=== PATIENT | female | born 1990 | race Caucasian/White ===

== ENCOUNTER 2017-07-02 13:01 | Outpatient (CLI) | payer BC, SELFPAY ==
[2017-07-02 15:39] VITALS: BMI 33.5
== END 2017-07-02 13:45 | disposition home or self-care (01) ==
LOC: OBOUT 13:04 → OB 13:09
PROVIDERS: PCP Family Medicine; Visit Provider Nurse Practitioner Obstetrics & Gynecology
DX: O26.91 Pregnancy related conditions, unspecified, first trimester (principal); Z3A.01 Less than 8 weeks gestation of pregnancy; N93.0 Postcoital and contact bleeding

== ENCOUNTER → 2017-07-04 12:48 | Outpatient (CLI) | payer BC, SELFPAY ==
--- NOTE | 2017-07-04 12:55 | US_ITS ---
US OB transvaginal HISTORY: Evaluate gestational age and due date ITS.REASON: DATES ORDERING PHYSICIAN: Ponce Pearson MD PATIENT AGE: 27 years COMPARISON: None FINDINGS: An intrauterine gestational sac is present with a pole with a crown-rump length of 1.11cm correlating to gestational age of 7 weeks 2 days. heart tones are present with an FHR of 164 bpm's. Yolk sac is noted. The estimated due date ultrasound is 02/18/2018. Adnexa: 15 mm right corpus luteum cyst noted.. IMPRESSION: Live intrauterine gestation at 7 weeks 2 days as described above with an estimated date of 02/18/2018.
== END ==
PROVIDERS: Family Provider Family Medicine; PCP Family Medicine; Visit Provider Nurse Practitioner Obstetrics & Gynecology
DX: O26.841 Uterine size-date discrepancy, first trimester (principal)
CPT/HCPCS: 76830

== ENCOUNTER → 2017-10-01 12:54 | Outpatient (CLI) | payer BC, SELFPAY ==
--- NOTE | 2017-10-01 13:00 | US_ITS ---
US OB /maternal detail INDICATION: ITS.REASON: US OB- Complete. TECHNIQUE: ultrasound transabdominal scanning/ MW COMPARISON: Ultrasound early 07/04/2017 FINDINGS Single viable intrauterine gestation. Cephalic position. The cervix appears satisfactory. Long, closed and measuring 3.0 cm centimeter in length. Complete survey performed and was unremarkable on the submitted images as in PACS.No discrete anomalies identified on survey imaging by technologist Active fetus. Three-vessel cord with satisfactory umbilical cord insertion. . Survey of brain & ventricles. Face and neck survey unremarkable. Diaphragm & views chest unremarkable. abdomen: Both kidneys noted & unremarkable. Stomach noted & satisfactory. spine: Survey of the spine satisfactory with no anomalies identified nor imaged Both arms and legs noted. Amniotic fluid.-Adequate. Maternal adnexa -no significant findings. measurements:. Average ultrasound age 20 weeks 3 days. Gestational age 20 weeks 3 days. BPD = 4.64 cm equaling 20 weeks 1 day OFD = 6.02 cm equaling 20 weeks 4 days HC = 16.88 cm equaling 19 weeks 4 days AC = 15.79 cm equaling 21 weeks 0 days FL = 3.38 cm equaling 20 weeks 5 days Heart rate = 153 BPM. Cerebellum = 1.91 cm equaling 19 weeks 5 days humerus = 3.137 m likely 20 weeks 3 days IMPRESSION: Single viable intrauterine gestation in breech position currently. 20 weeks 3 daysaverage ultrasound age with today's measurements Anterior placenta. Active fetus. No discrete abnormalities on the ultrasound survey.
== END ==
PROVIDERS: Family Provider Family Medicine; PCP Family Medicine; Visit Provider Nurse Practitioner Obstetrics & Gynecology
DX: Z36.0 Encounter for antenatal screening for chromosomal anomalies (principal)
CPT/HCPCS: 76811

== ENCOUNTER → 2018-01-24 10:45 | Outpatient (CLI) | payer BC, SELFPAY ==
[2018-01-24 11:17] LABS: Basophils % 0.3 % (0.1-2.0); Eosinophils # 0.1 K/mm3 (0.0-0.4); Eosinophils % 0.7 % (0.1-12.0); Hematocrit 37.1 % (37.0-47.0); Hemoglobin 12.5 g/dL (12.2-16.2); Lymphocytes # 2.2 K/mm3 (0.7-4.5); Lymphocytes % 17.4 K/mm3 (10-50); Mean Corpuscular HGB Conc 33.7 g/dL (31.8-35.4); Mean Platelet Volume 9.5 fl (7.4-10.4); Monocytes # 0.7 K/mm3 (0.1-1.0); Monocytes % 5.3 % (1.7-9.3); Neutrophils # 9.6 K/mm3 (1.8-7.8); Neutrophils % 76.3 % (37.0-80.0); Platelet Count 253 K/mm3 (142-424); Red Blood Count 4.47 M/mm3 (4.20-5.40); Red Cell Distribution Width 14.2 % (11.5-17.5); White Blood Count 12.6 K/mm3 (4.8-10.8)
[2018-01-24 12:04] LABS: Alanine Aminotransferase 24 U/L (12-78); Albumin Level 2.8 gm/dL (3.4-5.0); Albumin/Globulin Ratio 0.7 (1.1-1.8); Alkaline Phosphatase 177 U/L (46-116); Anion Gap 13.3 mEq/L (5-15); Aspartate Amino Transferase 18 U/L (15-37); Bilirubin,Total 0.3 mg/dL (0.2-1.0); Blood Urea Nitrogen 7 mg/dL (7-18); Calcium 9.2 mg/dL (8.5-10.1); Carbon Dioxide 22 mmol/L (21.0-32.0); Chloride 105 mmol/L (98-107); Creatinine,Serum 0.37 mg/dL (0.55-1.02); Estimated Glomerular Filt Rate 206 ml/min (>60); GFR (African American) 250 ML/MIN (>60); Globulin 3.8 gm/dl (1.3-3.2); Glucose 72 mg/dL (74-106); Potassium 4.3 mmoL/L (3.5-5.1); Sodium 136 mmol/L (136-145); Total Protein,Serum 6.6 gm/dL (6.4-8.2); Uric Acid 3.4 mg/dL (2.6-7.2)
== END ==
PROVIDERS: Family Provider Family Medicine; PCP Family Medicine; Visit Provider Nurse Practitioner Obstetrics & Gynecology
DX: Z34.90 Encounter for supervision of normal pregnancy, unspecified, unspecified trimester (principal)
CPT/HCPCS: 36415; 80053; 84550; 85025; 86403

== ENCOUNTER → 2018-01-26 09:53 | Outpatient (CLI) | payer BC, SELFPAY ==
[2018-01-26 12:46] LABS: Creatinine,Urine Random 112 mg/dL (20-320); Total Protein,Urine Random 19.1 mg/dL (0.0-11.9)
[2018-01-26 13:24] LABS: Collection Time,Urine 26 hours; Creatinine 24 Hour,Urine 1736 mg/24hr (630-2500); Total Protein 24 Hour,Urine 296 mg/24 hr (40-90); Total Volume,Urine 1550 mL (600-1600)
== END ==
PROVIDERS: Family Provider Family Medicine; PCP Family Medicine; Visit Provider Nurse Practitioner Obstetrics & Gynecology
DX: Z34.90 Encounter for supervision of normal pregnancy, unspecified, unspecified trimester (principal)
CPT/HCPCS: 82570; 84155

== ENCOUNTER 2018-01-30 04:56 | Inpatient (IN) ==
[2018-01-30 06:45] LABS: Anion Gap 13.5 mEq/L (5-15); Calcium 9.1 mg/dL (8.5-10.1); Potassium 3.5 mmoL/L (3.5-5.1); Uric Acid 4.1 mg/dL (2.6-7.2)
[2018-01-30 07:00] LABS: Activated Partial Thrombo Time 26.9 seconds (23.6-34.0); INR 0.92 (0.9-1.1); Prothrombin Time 9.5 seconds (9.4-11.8)
[2018-01-30 07:29] LABS: Fibrinogen > 500 mg/dL (204-500)
[2018-01-30 07:37] LABS: D-Dimer 760 ng/mL (0-400)
[2018-01-30 07:51] LABS: Basophils # 0.1 K/mm3 (0-0.2); Basophils % 0.5 % (0.1-2.0); Eosinophils # 0.1 K/mm3 (0.0-0.4); Hemoglobin 12.2 g/dL (12.2-16.2); Lymphocytes # 2.2 K/mm3 (0.7-4.5); Lymphocytes % 15.8 K/mm3 (10-50); Mean Corpuscular HGB Conc 32.9 g/dL (31.8-35.4); Mean Corpuscular Volume 82.1 fl (81-99); Mean Platelet Volume 10.2 fl (7.4-10.4); Monocytes # 0.8 K/mm3 (0.1-1.0); Monocytes % 5.7 % (1.7-9.3); Neutrophils # 10.6 K/mm3 (1.8-7.8); Platelet Count 258 K/mm3 (142-424); Red Blood Count 4.51 M/mm3 (4.20-5.40); Red Cell Distribution Width 14.7 % (11.5-17.5); White Blood Count 13.7 K/mm3 (4.8-10.8)
--- NOTE | 2018-01-30 10:36 | Progress Note ---
[facility] Anesthesia Checklist - Patient Identification Patient Identification: Arm Band - Structural Data Admitted From: Inpatient Planned Operative Procedure/s: labor epidural Consent for Planned Operative Procedure(s) Verified: Yes Verified Documents: Surgical Consent, History and Physical - NPO Status Verified Time NPO: 00:00 - Additional verifications Anesthesia Reactions: No - Airway Assessment C-Spine Mobility Assessed: Yes TMJ Mobility Assessed: Yes Dentition: Good Dentition - Neurological Assessment Level of Consciousness: Awake, Alert - Anesthesia Plan Anesthesia Risk discussed: Yes Anesthesia Plan: Verified ASA Class: II Anesthesia Type: Epidural [facility] Anesthesia HX I have reviewed the patient's past medical history: Yes Medical History: Denies:: Anxiety, Asthma, Diabetes Mellitus Type 2 Other Surgeries: No: Amputation: No Fractures: No *Family Hx:: Cancer, Diabetes, Hypertension, Thyroid Disorder
--- NOTE | 2018-01-30 14:24 | History & Physical Report ---
OB - H&P: HPI Antepartum - History of Present Illness Chief complaint: IOL History of present illness: 27yo 38 wks IOL for PIH Proteinuria 296mg; denies RAMOS, visual changes or epigastric pain testing reassuring No new complaints [facility] History I have reviewed the patient's past medical history: Yes Medical History: Denies:: Anxiety, Asthma, Diabetes Mellitus Type 2 Other Surgeries: No: Amputation: No Fractures: No - *Social History Smoking Status: Never smoker Alcohol Intake: never Substance Use Type: denies use Occupational Status: employed - Psychiatric History Pschychiatric History:: Denies:: Anxiety *Family Hx:: Cancer, Diabetes, Hypertension, Thyroid Disorder Para: 2 Review of Systems - Review of Systems Review of systems:: pertinent systems reviewed and negative unless documented below - Constitutional Denies chills, Denies fever(s) - Eyes Denies blurry vision, Denies double vision, Denies floaters - ENT Denies bleeding gums - *Cardiovascular Denies chest pain, Denies shortness of breath - *Respiratory Denies cough, Denies shortness of breath - *Gastrointestinal Denies abdominal pain, Denies change in bowel habits, Denies change in stools, Denies nausea, Denies vomiting - *Genitourinary Denies abnormal vaginal bleeding - *Musculoskeletal Reports back pain - Integumentary/Breasts Denies nipple discharge - *Neurologic Denies loss of vision, Denies other visual disturbances, Denies tingling/ numbness/burning sensations - Psychiatric Denies anxiety, Denies depression - Hematologic/Lymphatic Denies easy bleeding, Denies easy bruising Meds Home Medications Medication Instructions Recorded Confirmed Type [id number] 1 mg 1 tab PO DAILY 08/23/17 01/30/18 History tablet Ferrous Sulfate 325 mg PO DAILY 01/30/18 01/30/18 History Labetalol HCl 200 mg PO BID 01/30/18 01/30/18 History Allergies Allergy/AdvReac Type Severity Reaction Status Date / Time Penicillins Allergy Hives Verified 01/30/18 05:18 OB - H&P: Exam - Physical Exam Vital signs: Temp Pulse Resp BP Pulse Ox 97.9 F 81 18 140/77 100 01/30/18 05:06 01/30/18 05:06 01/30/18 05:06 01/30/18 05:06 01/30/18 05:06 - Constitutional no acute distress - Routine HEENT Exam ENT: Present: mucous membranes moist - Routine Respiratory Exam Present: CTA bilaterally. Absent: respiratory distress - Routine Cardiovascular Exam Present: RRR. Absent: tachycardia - Routine Abdominal Exam Present: soft. Absent: tenderness, distended - Routine Exam Perineal: Absent: erythema, induration, tenderness - Routine Extremities Exam Present: edema (1+) - Routine Skin Exam Present: intact, dry, warm. Absent: rash - Routine Neurological Exam Present: alert, oriented X3, normal reflexes - Routine Psychiatric Exam Present: normal affect. Absent: depressed, anxious - Detailed Labor and Delivery Exam Dilation (cm): 4 Effacement (%): 50 Cervix position: mid station: -1 Consistency: soft Membranes: intact monitor accelerations: Present monitor decelerations: None FCI variability: Moderate (11-25) Contraction frequency (min): 7 Tachysystole: No Contraction intensity: Mild OB - Results - Labs Labs: Short CBC 01/30/18 01/30/18 Range/Units 05:25 05:25 WBC Cancelled 13.7 H Hgb Cancelled 12.2 Hct Cancelled 37.0 Plt Count Cancelled 258 BMP 01/30/18 05:25 Sodium 138 Potassium 3.5 Chloride 106 Carbon Dioxide 22 BUN 6 L Creatinine 0.51 L Glucose 93 Calcium 9.1 Liver Function 01/30/18 Range/Units 05:25 AST 20 (15-37) U/L ALT 32 (12-78) U/L OB - A/P Antepartum (1) with 38 completed weeks gestation Current visit: Yes Status: Acute (2) PIH ( induced hypertension) Current visit: No Status: Acute - Additional Plan Additional Information:: 1. 38+ weeks IOL Pitocin augmentation Epidural at request 2. PIH PIH precautions and close monitoring of BP in labor; no indication for magnesium prophylaxis at this point 3. Reassuring status Continuous monitoring Anticipate
--- NOTE | 2018-01-30 14:39 | Progress Note ---
Delivery date: 01/30/18 Procedure: Spontaneous vaginal delivery of liveborn female infant over intact perineum. Nuchal cord x1 reduced on perineum; infant to nursing staff immediately after delivery for suction & assessment. Delivery uncomplicated & controlled; no shoulder dystocia occurred. Placenta spontaneously delivered and intact. No perineal/labial/vaginal/cervical lacerations. Apgars 7 (1 min) & 9 (5 min); infant transitioned to maternal [id number] after brief assessment and bulb suctioning. Mom/baby stable to recovery. EBL: 300cc All counts correct at conclusion of procedure. Events: Pre-Eclampsia Induction method: per pitocin protocol Delivery augmentation: pitocin Delivery monitor: external FHT, internal uterine Route of delivery: Episiotomy description: None Laceration description: None Estimated blood loss (mL): 300 Anesthesia type: Epidural Disposition: floor
[2018-01-31 07:47] LABS: Hematocrit 32.8 % (37.0-47.0); Hemoglobin 10.7 g/dL (12.2-16.2)
--- NOTE | 2018-01-31 23:37 | Progress Note ---
Internal Medicine - PN: Subj *Date: 01/31/18 *Time: 11:33 Interval history: PPD #1 No complaints Tolerating po, ambulating and voiding without difficulty Lochia less than menses Exam Vital signs and Labs for Last 24 Hours: Temp Pulse Resp BP Pulse Ox 97.9 F 81 18 140/77 100 01/30/18 05:06 01/30/18 05:06 01/30/18 05:06 01/30/18 05:06 01/30/18 05:06 Laboratory Results - last 24 hr 01/31/18 07:35: Hgb 10.7 L, Hct 32.8 L I & O for Last 24 hours: Intake & Output 01/29/18 01/30/18 01/31/18 02/01/18 11:59 11:59 11:59 11:59 Weight 182 lb - Constitutional no acute distress - *Routine Respiratory Exam Absent: respiratory distress - *Routine Cardiovascular Exam Absent: tachycardia - *Routine Abdominal Exam Present: soft. Absent: tenderness, distended - *Routine Extremities Exam Absent: edema - *Routine Skin Exam Present: intact, dry, warm - *Routine Neurological Exam Present: alert, oriented X3 - Routine Psychiatric Exam Present: normal affect Assessment and Plan (1) with 38 completed weeks gestation Current visit: Yes Status: Acute Category: Medical Code(s): Z3A.38 - 38 weeks gestation of (2) PIH ( induced hypertension) Current visit: No Status: Acute Category: Medical Code(s): O13.9 - Gestational [-induced] hypertension without significant proteinuria, unspecified trimester (3) Normal vaginal delivery Current visit: Yes Status: Acute Category: Medical Code(s): O80 - Encounter for full-term uncomplicated delivery - Assessment and plan all Dx Assessment and Plan for all problems:: Routine care Anticipate discharge in am
--- NOTE | 2018-02-01 09:33 | Discharge Summary ---
DS: Providers Date of admission: 01/30/18 04:56 Primary care physician: Jorge L Lee MD Attending physician on admission: Myla Manley Attending physician on discharge: Myla Manley Anticipated date of discharge: 02/01/18 DS: Diagnosis - Discharge Diagnosis (1) with 38 completed weeks gestation Status: Acute (2) PIH ( induced hypertension) Status: Acute (3) Normal vaginal delivery Status: Acute DS: Medications - Discharge Medications Prescriptions: New Ibuprofen [Motrin 400mg tablet] 800 mg PO Q6HP PRN tablet PRN Reason: Mild To Moderate Pain Continue Ferrous Sulfate 325 mg PO DAILY Labetalol HCl 200 mg PO BID No Action [id number] 1 mg tablet 1 tab PO DAILY OB - DS: Summary Hospital course: Ms. Bell is a 27 year old female s/p IOL for PIH uncomplicated and course uneventful ambulating, tolerating regular diet and voiding without difficulty BP somewhat labile but stable in normal-mild elevation range Discharged home on PPD #2 F/u office 1 wk for BP check - Peripartum Data Delivery method: spontaneous vaginal delivery - Status at Discharge Functional status at discharge: independent ambulation Overall status at discharge: patient is progressing back to baseline - Time Spent with Patient Total time spent providing and/or coordinating discharge services: Less than 30 minutes Exam Vital signs and Labs for Last 24 Hours: Temp Pulse Resp BP Pulse Ox 97.9 F 81 18 140/77 100 01/30/18 05:06 01/30/18 05:06 01/30/18 05:06 01/30/18 05:06 01/30/18 05:06 I & O for Last 24 hours: Intake & Output 01/29/18 01/30/18 01/31/18 02/01/18 11:59 11:59 11:59 11:59 Weight 182 lb - Constitutional no acute distress - *Routine Respiratory Exam Absent: respiratory distress - *Routine Cardiovascular Exam Absent: tachycardia - *Routine Abdominal Exam Present: soft. Absent: tenderness, distended - *Routine Extremities Exam Absent: edema - *Routine Skin Exam Absent: rash - *Routine Neurological Exam Present: alert, oriented X3, normal reflexes - Routine Psychiatric Exam Present: normal affect. Absent: depressed, anxious Discharge Plan - Patient Discharge Instructions ACTIVITY: Continue current activity DIET: regular diet - Follow up Plan Disposition: Home, Self-Detention Medications: Home Medications Medication Instructions Recorded Confirmed Type [id number]-[id number]-FA 1 mg 1 tab PO DAILY 08/23/17 01/30/18 History tablet Ferrous Sulfate 325 mg PO DAILY 01/30/18 01/30/18 History Labetalol HCl 200 mg PO BID 01/30/18 01/30/18 History Prescriptions/Medication Reconciliation: No Action shvxjuuw-axu-Xj-FA 1 mg tablet 1 tab PO DAILY Ferrous Sulfate 325 mg PO DAILY Labetalol HCl 200 mg PO BID
== END 2018-02-01 12:35 | disposition home or self-care (01) ==
LOC: OB 04:56
PROVIDERS: ADMIT Obstetrics & Gynecology; ATTEND Obstetrics & Gynecology

== ENCOUNTER → 2018-09-09 08:29 | Outpatient (CLI) | payer BC, SELFPAY ==
[2018-09-09 09:10] LABS: Microscopic, Urine URINE MICROSCOPIC (MICROSCOPIC)
[2018-09-09 09:39] LABS: Appearance,Urine CLEAR (Clear); Bilirubin,Urine Negative (Negative); Blood, Urine TRACE-I (Negative); Color,Urine YELLOW (Yellow); Glucose,Urine (UA) Negative (Negative); Ketones,Urine Negative (Negative); Leukocyte Esterase,Urine 1+ (Negative); Nitrate,Urine Negative (Negative); Protein,Urine Negative (Negative); Urobilinogen,Urine 0.2 EU/dl (0.2)
[2018-09-09 09:41] LABS: Creatinine,Urine Random 167 mg/dL (20-320); Total Protein,Urine Random 17.9 mg/dL (0.0-11.9)
[2018-09-09 09:46] LABS: Bacteria,Urine 4+ /lpf; Mucus,Urine 2+ /lpf
[2018-09-09 09:51] LABS: Lactic Acid 1.9 mmol/L (0.4-2.0)
[2018-09-09 10:26] LABS: Creatinine,Urine Random 91 mg/dL (20-320); Total Protein,Urine Random 10.9 mg/dL (0.0-11.9)
[2018-09-09 10:29] LABS: Basophils % 0.4 % (0.1-2.0); Eosinophils # 0.1 K/mm3 (0.0-0.4); Eosinophils % 1.1 % (0.1-12.0); Hematocrit 39.7 % (37.0-47.0); Hemoglobin 13.1 g/dL (12.2-16.2); Lymphocytes # 2.2 K/mm3 (0.7-4.5); Lymphocytes % 21.4 % (10-50); Mean Corpuscular HGB Conc 32.9 g/dL (31.8-35.4); Mean Corpuscular Hemoglobin 28.2 pg (27.0-31.2); Mean Corpuscular Volume 85.6 fl (81-99); Monocytes # 0.5 K/mm3 (0.1-1.0); Monocytes % 4.8 % (1.7-9.3); Neutrophils # 7.3 K/mm3 (1.8-7.8); Neutrophils % 72.3 % (37.0-80.0); Platelet Count 256 K/mm3 (142-424); Red Blood Count 4.64 M/mm3 (4.20-5.40); Red Cell Distribution Width 13.5 % (11.5-17.5); White Blood Count 10.1 K/mm3 (4.8-10.8)
[2018-09-09 11:16] LABS: Collection Time,Urine 24 hours
[2018-09-09 11:16] LABS: Alanine Aminotransferase 42 U/L (12-78); Albumin Level 4.1 gm/dL (3.4-5.0); Albumin/Globulin Ratio 1.1 (1.1-1.8); Alkaline Phosphatase 151 U/L (46-116); Anion Gap 15.9 mEq/L (5-15); Aspartate Amino Transferase 19 U/L (15-37); Bilirubin,Total 0.4 mg/dL (0.2-1.0); Blood Urea Nitrogen 11 mg/dL (7-18); Carbon Dioxide 26 mmol/L (21.0-32.0); Chloride 103 mmol/L (98-107); Creatine Kinase 60 U/L (26-192); Creatinine,Serum 0.82 mg/dL (0.55-1.02); Estimated Glomerular Filt Rate 82 ml/min (>60); GFR (African American) 99 ML/MIN (>60); Gamma Glutamyl Transpeptidase 95 U/L (5-55); Globulin 3.6 gm/dl (1.3-3.2); Glucose 85 mg/dL (74-106); Phosphorous 4.1 mg/dL (2.4-4.9); Potassium 3.9 mmoL/L (3.5-5.1); Sodium 141 mmol/L (136-145); Total Protein,Serum 7.7 gm/dL (6.4-8.2)
[2018-09-09 11:17] LABS: Hemoglobin A1C 5.7 % (0.0-7.0)
[2018-09-09 11:20] LABS: Creatinine 24 Hour,Urine 1138 mg/24hr (630-2500); Total Protein 24 Hour,Urine 136 mg/24 hr (40-90); Total Volume,Urine 1250 mL (600-1600)
[2018-09-10 16:11] LABS: Microalbumin, Urine 6.7 ug/mL (Not Estab.)
== END ==
PROVIDERS: Visit Provider Transplant Surgery
DX: Z00.5 Encounter for examination of potential donor of organ and tissue (principal)
CPT/HCPCS: 36415; 80053; 81001; 82043; 82550; 82570; 82977; 83036; 83605; 84100; 84155; 84550; 85025; 86900; 86901; 87086

== ENCOUNTER → 2018-10-17 07:55 | Outpatient (CLI) | payer BC, SELFPAY ==
[2018-10-17 10:10] LABS: Erythrocyte Sedimentation Rate 36 mm/hr (0-20)
[2018-10-17 13:45] LABS: C-Reactive Protein 0.2 mg/L (0.0-0.9)
== END ==
PROVIDERS: Visit Provider Transplant Surgery
DX: Z00.5 Encounter for examination of potential donor of organ and tissue (principal)
CPT/HCPCS: 36415; 85651; 86140

== ENCOUNTER 2021-09-03 09:15 | Emergency (ER) | payer BC, SELFPAY ==
[2021-09-03 09:15] VITALS: BP 134/88; PULSE 102; RESP 18; TEMP 36.6; O2SAT 97; BMI 27.6
[2021-09-03 09:35] VITALS: BP 134/88; PULSE 102; RESP 18; TEMP 36.6; O2SAT 97
--- NOTE | 2021-09-03 09:38 | HMH.EDUTC ---
[facility] Disposition Clinical Impression: Upper respiratory infection, viral, Exposure to COVID-19 virus Disposition: Home, Self-Care Condition on Discharge: Good Instructions: DI for Viral Upper Respiratory Infection -- Adult Additional Instructions: covid swab was sent to lab, call tomorrow for results. self isolate until test results are known to be negative No sign of a bacterial infection. Likely viral. Viruses can take 7-14 days to run their course. Nasal saline and bulb syringe or nose Faye to remove nasal drainage to help with nasal congestion. Hard to eat, drink, sleep with nasal congestion so important to keep this cleaned out. Monitor temp. Tylenol or Motrin as needed for pain or fever Encourage fluids, water, Gatorade, Powerade, Pedialyte if /toddler/child Warm salt water gargles Warm fluids Sore throat lozenges Sleep elevated Humidifier/vaporizer Follow-up immediately for new or worsening symptoms or no noticeable improvement over the next 48-72 hours. Referrals: Tiffanie Campos PA [Primary Care Provider] - Time of Disposition: 09:40 Medical Decision Making - Subahsh Inquiry Pt receiving controlled substance: No Orders (Tests/Meds): ORDERS Category Date Time Status Covid-19 Nasal PCR ([facility]) Routine Lab 09/03/21 09:20 Received [facility] HPI - General Chief complaint: Urgent Treatment [facility] Stated complaint: covid exposure, fever Time Seen by Provider: 09/03/21 09:38 Mode of Arrival: Ambulatory Source of Information: Patient Limitations: No Limitations - History of Present Illness Provider Complaint: 31 yr old female presents for nasal congestion,cough and rt ear pressure, son positive for covid - Related Data Home Medications Medication Instructions Recorded Confirmed No Known Home Medications 01/13/20 03/18/21 Allergies Allergy/AdvReac Type Severity Reaction Status Date / Time Penicillins Allergy Hives Verified 03/18/21 10:49 [facility] History - Hepatitis A Screen Attestation statement:: This patient has been screened for Hepatitis A risk factors. I have reviewed the patient's past medical history: Yes Medical History: Reports:: Aneurysm Denies:: Anxiety, Asthma, Diabetes Mellitus Type 2 Other Surgeries: Yes: Cholecystectomy. No: Amputation: No Fractures: No Comment: gallbladder 2009 - Social History Smoking Status: Never smoker Alcohol Intake: never Alcohol Intake Frequency:: other Substance Use Type: denies use Occupational Status: other - Psychiatric History Pschychiatric History:: Denies:: Anxiety Family Hx:: Cancer, Diabetes, Hypertension, Thyroid Disorder Comment: family hx of kidney disease, colon cancer, liver and lungs, hypertension, thyroid, diabetes ROS Obtained: Yes Systems reviewed as appropriate & no additional complaints - Constitutional Constitutional: Reports system reviewed and no additional complaints, except as docu, Denies fever(s) - Eyes Eyes: Reports system reviewed and no additional complaints, except as darrellu, Denies blurry vision - ENT Ears, Nose, Mouth, and Throat: Reports system reviewed and no additional complaints, except as docu, Reports otalgia, Reports nasal congestion, Reports nasal discharge, Denies sore throat - Cardiovascular Cardiovascular: Reports system reviewed and no additional complaints, except as darrellu, Denies chest pain - Respiratory Respiratory: Reports system reviewed and no additional complaints, except as docu, Reports cough - Gastrointestinal Gastrointestingal: Reports: system reviewed and no additional complaints, except as darrellu. Denies: belching - Musculoskeletal Musculoskeletal: Reports system reviewed and no additional complaints, except as darrellu, Denies joint pain - Integumentary/Breasts Skin/Breast: Reports system reviewed and no additional complaints, except as docu, Denies rash - Neurologic Neurologic: Reports system reviewed and no additional complaints, except as barbie Denie
== END 2021-09-03 09:40 | disposition home or self-care (01) ==
PROVIDERS: Emergency Provider Nurse Practitioner Family; PCP Physician Assistant
DX: U07.1 COVID-19 (principal); J06.9 Acute upper respiratory infection, unspecified; I72.9 Aneurysm of unspecified site; Z88.0 Allergy status to penicillin; Z82.49 Family history of ischemic heart disease and other diseases of the circulatory system; Z83.3 Family history of diabetes mellitus; Z80.1 Family history of malignant neoplasm of trachea, bronchus and lung; Z80.0 Family history of malignant neoplasm of digestive organs; Z84.1 Family history of disorders of kidney and ureter; Z83.49 Family history of other endocrine, nutritional and metabolic diseases
CPT/HCPCS: 99212; C9803; G0463; U0003; U0005

== ENCOUNTER → 2021-11-21 10:48 | Outpatient (CLI) | payer BC, SELFPAY | PROVIDERS: Visit Provider Surgery | DX: Z01.818 Encounter for other preprocedural examination (principal); Z20.822 Contact with and (suspected) exposure to COVID-19 | CPT/HCPCS: C9803; U0003; U0005 ==

== ENCOUNTER 2023-07-10 13:49 | Outpatient (CLI) | payer BC, SELFPAY ==
--- NOTE | 2023-07-10 13:56 | XR_ITS ---
FINAL REPORT TECHNIQUE: Chest PA & Lateral CLINICAL HISTORY: BRONCHITIS FINDINGS: 2 views of the chest were performed. The heart size is normal. The mediastinum is within normal limits. There is no acute cardiopulmonary process. There are no pleural effusions. There is no pneumothorax. The bony thorax appears intact. IMPRESSION: No acute cardiopulmonary process. Reviewed, Interpreted and Dictated by Sukhdev Gaston III, MD Transcribed by Boom Melgoza Authenticated and [facility]
== END 2023-07-10 23:59 ==
LOC: RAD 13:50
PROVIDERS: PCP Physician Assistant; Visit Provider Physician Assistant
DX: J40 Bronchitis, not specified as acute or chronic (principal)
CPT/HCPCS: 71046

== ENCOUNTER 2024-06-23 11:19 | Outpatient (CLI) | payer BC, SELFPAY ==
[2024-06-23 12:44] LABS: Alanine Aminotransferase 38 U/L (12-78); Albumin Level 4.3 g/dl (3.5-5.0); Albumin/Globulin Ratio 1.6 (1.1-1.8); Alkaline Phosphatase 86 U/L (38-126); Anion Gap 11.4 mEq/L (5-15); Aspartate Amino Transferase 34 U/L (14-36); Bilirubin,Total 0.6 mg/dl (0.2-1.3); Blood Urea Nitrogen 9 mg/dl (7-17); Calcium 9.9 mg/dl (8.4-10.2); Carbon Dioxide 27 mmol/L (22.0-30.0); Chloride 104 mmol/L (98-107); Estimated Glomerular Filt Rate 113 ml/min (>60); GFR (African American) 137 ML/MIN (>60); Globulin 2.7 g/dL (1.3-3.2); Glucose 204 mg/dl (74-100); Potassium 4.4 mmoL/L (3.5-5.1); Sodium 138 mmol/L (136-145)
== END 2024-06-23 23:59 | disposition home or self-care (01) ==
PROVIDERS: PCP Physician Assistant; Visit Provider Nurse Practitioner Obstetrics & Gynecology
DX: Z01.419 Encounter for gynecological examination (general) (routine) without abnormal findings (principal)
CPT/HCPCS: 36415; 80053

== ENCOUNTER 2024-06-28 08:49 | Outpatient (CLI) | payer BC, SELFPAY ==
[2024-06-28 09:19] LABS: Albumin Level 4.5 g/dl (3.5-5.0); Chloride 104 mmol/L (98-107); Potassium 4.3 mmoL/L (3.5-5.1); Sodium 137 mmol/L (136-145)
[2024-06-28 09:22] LABS: Alanine Aminotransferase 42 U/L (12-78); Albumin/Globulin Ratio 1.7 (1.1-1.8); Alkaline Phosphatase 98 U/L (38-126); Anion Gap 11.3 mEq/L (5-15); Aspartate Amino Transferase 34 U/L (14-36); Bilirubin,Total 0.4 mg/dl (0.2-1.3); Blood Urea Nitrogen 10 mg/dl (7-17); Carbon Dioxide 26 mmol/L (22.0-30.0); Estimated Glomerular Filt Rate 95 ml/min (>60); GFR (African American) 115 ML/MIN (>60); Globulin 2.7 g/dL (1.3-3.2); Total Protein,Serum 7.2 g/dl (6.3-8.2)
[2024-06-28 09:23] LABS: Calcium 9.6 mg/dl (8.4-10.2); Glucose 142 mg/dl (74-100)
[2024-06-28 10:32] LABS: Hemoglobin A1C 6.9 % (4.0-6.0)
== END 2024-06-28 23:59 | disposition home or self-care (01) ==
LOC: LAB 08:50
PROVIDERS: PCP Physician Assistant; Visit Provider Nurse Practitioner Obstetrics & Gynecology
DX: R53.83 Other fatigue (principal); R73.09 Other abnormal glucose
CPT/HCPCS: 36415; 80053; 83036

== ENCOUNTER 2025-02-12 14:08 | Outpatient (CLI) | payer BC, SELFPAY ==
--- OUTSIDE RECORDS SUMMARY | 2024-10-03 05:00 | XMS_ITS ---
Author Organization [facility] [place] Address [address] [facility] [address] [facility] [address] [place] [id number] Care Team Providers Care Control Officer Manager Name Role Phone Lance Garcia Primary Care Provider Tiffanie Campos Unavailable [phone] Allergies Allergen (clinical drug ingredient) Drug/Non Drug Allergy documented on EMR Reaction Allergy Type Onset Date Status Substance with penicillin structure and antibacterial mechanism of action (substance) Penicillins Unknown Drug Allergy Active Results Component Value Reference Range Notes P-Comprehensive Metabolic Pa silvino (CMP) Reviewed date:10/09/2024 02:08:32 PM Interpretation: Normal Performing Lab: Notes/Report: Test performed by [facility] [address] [place] [address] , [address], [place] [address] Mitchel Jauregui MD, Chemical Process Analyst CLIA: [id number] Sodium 139 135-145 mmol/L Potassium 4.8 3.5-5.3 mmol/L Chloride 102 97-108 mmol/L CO2 23 22-32 mmol/L Glucose 80 65-99 mg/dL BUN 9 6-20 mg/dL Creatinine 0.61 0.50-1.00 mg/dL Calcium 10.0 8.6-10.4 mg/dL eGFR by Creatinine 118 >59 mL/min/1.73m2 Protein 7.6 6.0-8.3 g/dL Albumin 4.7 3.5-5.3 g/dL Alkaline Phosphatase 109 35-121 IU/L ALT (SGPT) 37 <5-47 IU/L AST (SGOT) 25 <5-40 IU/L Bilirubin, Total 0.4 <0.2-1.2 mg/dL A/G Ratio 1.6 1.1-2.5 P-T4 Free (thyroxine) Reviewed date:10/09/2024 02:08:32 PM Interpretation: Normal Performing Lab: Notes/Report: Test performed by [facility] , [facility] [address], [place] [address] Mitchel Jauregui MD, Chemical Process Analyst CLIA: [id number] Thyroxine Free (free T4) 1.24 0.86-1.76 ng/dL P-Hemoglobin A1C Reviewed date:10/09/2024 02:08:32 PM Interpretation:5.3% Performing Lab: Notes/Report: Test performed by [facility] [address], [place] [address] Mitchel Jauregui MD, Chemical Process Analyst CLIA: [id number] Hemoglobin A1C 5.3 <5.7 % The following HbA1c ranges recommended by the [place] [employer] (ADA) may be used as an aid in the diagnosis of diabetes mellitus. HbA1c Suggested Diagnosis >=6.5% Diabetic 5.7% - 6.4% Pre-Diabetic <5.7% Non-Diabetic P-TSH Reviewed date:10/09/2024 02:08:32 PM Interpretation: Normal Performing Lab: Notes/Report: Test performed by [facility] [address], [place] [address] Mitchel Jauregui MD, Chemical Process Analyst CLIA: [id number] TSH 0.97 0.43-5.25 mU/L Estimated Average Glucose Reviewed date:10/09/2024 02:08:32 PM Interpretation: Normal Performing Lab: Notes/Report: Test performed by [facility] [address] [place], [address], [place] [address] Mitchel Jauregui MD, Chemical Process Analyst CLIA: [id number] Estimated Average Glucose (eAG) 105 Estimated Average Glucose (eAG) is calculated using the equation eAG = (28.7 x HbA1c) - 46.7 based on the guidelines established by the ADA. If the patient has certain diseases including kidney disease, sickle cell anemia, thalassemia, or is taking medications such as dapsone, erythropoietin, or iron, eAG should not be evaluated. REASON FOR VISIT 3 months Medications Medication SIG (Take, Route, Fr equency, Duration) Notes Start Date End Date Status metFORMIN HCl ER 500 MG 1 tablet with ev ening meal Orally Once a day; Duration: 90 days Active Mounjaro 5 MG/0.5ML INJECT 1 SYRINGE SUBCUTANEOUSLY ONCE A WEEK; Duration: 28 Active Spironolactone 50 MG 1 tablet Orally Onc e a day; Duration: 30 day(s) Active Mounjaro 7.5 MG/0.5ML 7.5 mg Subcutaneou s once a week 10/03/2024 Active Nexplanon 68 MG 1 ea subcutaneously once; Duration: 1 dose(s) Active Vital Signs Weight 165.6 lbs 10/03/2024 Blood pressure systolic 116 mm Hg 10/04/19 25 Blood pressure diastolic 74 mm Hg 025 Heart Rate 90 /min 10/03/2024 Height 62.75 in 10/03/2024 BMI 29.57 kg/m2 10/03/2024 Encounters Encounter Location Date Provider Diagnosis García [address] [facility] [address] [facility] [address] [place] [id number] 10/03/2024 Tiffanie Campos Type 2 diabetes, HbA 1c goal < 7% E11.9 and Abnormal thyroid blood test R79.89 Assessments Encounter Date Diagnosis (ICD Code) Assessment Notes Treatment Notes Treatment Clinical Notes Section Notes 10/03/2024 Type 2 diabetes, HbA1c goal < 7% (ICD-10 - E11.9) 10/03/2024 Abnormal thyroid blood test (ICD-10 - R79.89) Plan Of Treatment Medication Medication Name Sig Start Date Stop Date Notes metFORMIN HCl ER 500 MG 1 tablet with ev ening meal Orally Once a day; Duration: 90 days Mounjaro 2.5 MG/0.5ML as directed Subcut aneous once a week Mounjaro 7.5 MG/0.5ML 7.5 mg Subcutaneous once a week 09/2024 Next Appt Details Follow Up: via phone to repo rt test results, Reason: Provider Name:Tiffanie patino, 07/17/2025 10:00:00 AM, [address] [facility] [address] [facility], [address], [place], [id number], Progress Notes * ANITA STILLOB: (34 yo F)Acc No.[id number]:10/03/2024 Progress Notes Patient: ANITA LEVY Provider: ZAKIA Rodriguez :1990 A ge:34 Y S ex:Female Date:10/03/2024 Address:[address] [facility] [id number] Pcp:Lance Garcia Subjective: * Chief Complaints: * 1 . 3 months. * HPI: H PI: 34 year old female presents with c/o Patient is here today for?Pt is here today for a 3 month check up. Pt is due for labs today. Pt is fasting today. Pt sts that she has no new concerns or complaints. Pt would like to discuss increasing her Mounjaro. * ROS: D ERMATOLOGY: no R ellen. n o H tom. G ASTROENTEROLOGY: no N ausea. n o V omiting. n o D iarrhea.? U ROLOGY: no D ifficulty urinating. n o B lood in urine. * Medical History: A neursyms (spleen, splenic artery, pancreas, right kidney). * Surgical History: c yst removal from Right wrist 2013. * Hospitalization/Major Diagno stic Procedure: c hild . * Family History: F ather: alive. M other: alive 56 yrs. P aternal Grand Father: unknown. P aternal Grand Mother: unknown. M aternal Grand Father: alive. M aternal Grand Mother: alive. 1 sister(s) . 1 son(s) . . * Social History: C URRENT TOBACCO USE S moking Status: Patient does NOT smoke. C affeine: yes, frequency:. Home smoke detector use: yes. Marital Status: Single. Past smoking status: no. Alcohol: no. Sexually active: no.. * Medications: T aking Spironolactone 50 MG Tablet 1 tablet Orally Once a day , Taking Nexplanon 68 MG Implant 1 ea subcutaneously once , Taking metFORMIN HCl ER 500 MG Tablet Extended Release 24 Hour 1 tablet with evening meal Orally Once a day , Taking Mounjaro 5 MG/0.5ML Solution Auto-injector INJECT 1 SYRINGE SUBCUTANEOUSLY ONCE A WEEK , Discontinued Albuterol Sulfate (2.5 MG/3ML) 0.083% Nebulization Solution 3 mL Inhalation every 6 hrs, prn , Medication List reviewed and reconciled with the patient * Allergies: P enicillins. Objective: * Vitals: W t: 165.6, Temp: 98.7, BP: 116/74, HR: 90, Nurse: FÉLIX, Ht: 62.75, BMI:29.57. * Examination: G eneral Examination: General Appearance: N AD. H EENT: u nremarkable.?Oral cavity: n o lesions, mucosa moist and WNL, no erythema. N jairon: s upple, no lymphadenopathy. C hest: n ormal shape and expansion. H eart: R SR. L ungs: c lear to auscultation. A bdomen: bowel sounds present, soft and nontender, no organomegaly or masses, no guarding or rigidity. N eurologic Exam: I ntact, gait normal. S kin: n ormal, no rash. P eripheral pulses: n ormal (2+) bilaterally. E xtremities: n o leg edema. Assessment: * Assessment: 1. T ype 2 diabetes, HbA1c goal < 7% - E11.9 (Primary) 2 . A bnormal thyroid blood test - R79.89 Plan: * Treatment: Value Reference Range H emoglobin A1C 5.3 <5.7 - % * Laura Cruz 10/09/2024 02: 07:18 PM > pt informed of results ?LAB: P-Comprehensive Metabolic Panel (CMP) (Collection Date & Time - 10/03/2024 10:25 AM)?Normal* Value Reference Range A /G Ratio 1.6 1.1-2.5 - * A lbumin 4.7 3.5-5.3 - g/dL * A lkaline Phosphatase 109 35-121 - IU/L * A LT (SGPT) 37 <5-47 - IU/L * A ST (SGOT) 25 <5-40 - IU/L * B ilirubin, Total 0.4 <0.2-1.2 - mg/dL * B UN 9 6-20 - mg/dL * C alcium 10.0 8.6-10.4 - mg/dL * C hloride 102 97-108 - mmol/L * C O2 23 22-32 - mmol/L * C reatinine 0.61 0.50-1.00 - mg/dL * G lucose 80 65-99 - mg/dL * P otassium 4.8 3.5-5.3 - mmol/L * S odium 139 135-145 - mmol/L * P rotein 7.6 6.0-8.3 - g/dL * e GFR by Creatinine 118 >59 - mL/min/1.73m2 * Laura Cruz 10/09/2024 02: 07:18 PM > pt informed of results 2.?Abnormal thyroid blood test?LAB: P-T4 Free (thyroxine) (Collection Date & Time - 10/03/2024 10:25 AM)? Normal* Value Reference Range T hyroxine Free (free T4) 1.24 0.86-1.76 - ng/d L * Laura Cruz 10/09/2024 02: 07:18 PM > pt informed of results ?LAB: P-TSH (Collection Date & Time - 10/03/2024 10:25 AM)?Normal* Value Reference Range T SH 0.97 0.43-5.25 - mU/L * Laura Cruz 10/09/2024 02: 07:18 PM > pt informed of results * Labs: * L ab: Estimated Average Glucose (Collection Date & Time - 10/03/2024 08:49 AM) N ormal Value Reference Range E stimated Average Glucose 105 - mg/dL * [facility], IT support 10/04/2024 03:35:01 : This order was created by the Interface. Laura Cruz 10/09/2024 02:07:18 PM > pt informed of results * Procedure Codes: 3 044F HG A1C LEVEL LT 7.0%, 3074F SYST BP LT 130 MM HG, 3078F DIAST BP < 80 MM HG * Follow Up: v ia phone to report test results * Images: Billing Information: * Visit Code: 58594 Office Visit, Est Pt., Level 4. * Procedure Codes: 3044F HG A1C LEVEL LT 7.0%. 3074F SYST BP LT 130 MM HG. 3078F DIAST BP < 80 MM HG. * Electronic signature of ZAKIA Diaz on 02/12/2025 at 02:18 PM EDT Sign off status: Pending * Provider: ZAKIA Rodriguez Date: 0 10/03/2024 Generated for Syed nielsen/Javier/Butch on: 0 02/12/2025 02:18 PM EDT History and Physical Notes * HPI (History of Present Illness) Category Sub-Category Detail Notes Category Not es HPI Patient is here today for Pt is here today for a 3 month check up. Pt is due for labs today. Pt is fasting today. Pt sts that she has no new concerns or complaints. Pt would like to discuss increasing her Mounjaro Examination Category Sub-Category Detail Notes Category Not es General Examination HEENT: unremarkable Heart: RSR Lungs: clear to auscultatio n Abdomen: bowel sounds present , soft and nontender, no organomegaly or masses, no guarding or rigidity Extremities: no leg edema General Appearance: NAD Skin: normal, no rash Neurologic Exam: Intact, gait normal Neck: supple, no lymphaden opathy Oral cavity: no lesions, mucosa m oist and WNL, no erythema Peripheral pulses: normal (2+) bilatera lly Chest: normal shape and exp ansion
--- OUTSIDE RECORDS SUMMARY | 2025-01-14 05:00 | XMS_ITS ---
Author Organization [facility] Address [address] [facility] [address] [facility] [address] [place] [id number] Care Team Providers Care Veneer Slicing Machine Operator Name Role Phone Lance Garcia Primary Care Provider [phone] Tiffanie Campos Unavailable [phone] Allergies Allergen (clinical drug ingredient) Drug/Non Drug Allergy documented on EMR Reaction Allergy Type Onset Date Status Substance with penicillin structure and antibacterial mechanism of action (substance) Penicillins Unknown Drug Allergy Active Results Component Value Reference Range Notes CBC Venipuncture (in house) Reviewed date:01/16/2025 01:24:08 PM Interpretation:Normal Performing Lab: Notes/Report: Normal wbc 8.0 3.5 - 10 lymph 36.8 15 - 50 mid 6.7 2 - 15 gran 56.5 35 - 80 rbc 6.56 3.5 - 5.5 hgb 19.4 11.5 - 16.5 hct 60.3 35 - 55 mcv 92.0 75 - 100 mch 29.6 25 - 35 mchc 32.2 31 - 38 platlet 371 100 - 400 Glycohemoglobin A1c (in hous e) Reviewed date:01/16/2025 01:24:28 PM Interpretation:5.0 Performing Lab: Notes/Report: 5.0 glycohemoglobin 5.0% 5 - 6.5 % P-Comprehensive Metabolic Pa silvino (CMP) Reviewed date:01/16/2025 01:24:17 PM Interpretation:Normal Performing Lab: Notes/Report: Test performed by [facility] , [address], [place] [address] Mitchel Jauregui MD, Dark Room Attendant CLIA: [id number] Sodium 140 135-145 mmol/L Potassium 4.7 3.5-5.3 mmol/L Chloride 104 97-108 mmol/L CO2 25 20-32 mmol/L Glucose 76 65-99 mg/dL BUN 8 6-20 mg/dL Creatinine 0.67 0.50-1.00 mg/dL Calcium 9.8 8.6-10.4 mg/dL eGFR by Creatinine 115 >59 mL/min/1.73m2 Protein 7.4 6.0-8.3 g/dL Albumin 4.6 3.5-5.3 g/dL Alkaline Phosphatase 101 35-121 IU/L ALT (SGPT) 26 <5-47 IU/L AST (SGOT) 18 <5-40 IU/L Bilirubin, Total 0.5 <0.2-1.2 mg/dL A/G Ratio 1.6 1.1-2.5 P-T4 Free (thyroxine) Reviewed date:01/16/2025 01:23:41 PM Interpretation:Normal Performing Lab: Notes/Report: Test performed by [facility] [address] [place] [address] , [address], [place] [address] Mitchel Jauregui MD, Dark Room Attendant CLIA: [id number] Thyroxine Free (free T4) 1.28 0.86-1.76 ng/dL P-TSH Reviewed date:01/16/2025 01:23:51 PM Interpretation:Normal Performing Lab: Notes/Report: Test performed by [facility] [address] [place] [address] , [address], [place] [address] Mitchel Jauregui MD, Dark Room Attendant CLIA: [id number] TSH 0.55 0.43-5.25 mU/L REASON FOR VISIT 3 months Medications Medication SIG (Take, Route, Fr equency, Duration) Notes Start Date End Date Status Nexplanon 68 MG 1 ea subcutaneously once; Duration: 1 dose(s) Active metFORMIN HCl ER 500 MG 1 tablet with ev ening meal Orally Once a day; Duration: 90 days Active Mounjaro 7.5 MG/0.5ML INJECT 1 PEN SUBCU TANEOUSLY ONCE A WEEK; Duration: 28 Active Spironolactone 50 MG 1 tablet Orally Onc e a day; Duration: 30 day(s) Active Mounjaro 7.5 MG/0.5ML 7.5 mg Subcutaneou s once a week Active Vital Signs Weight 140.6 lbs 01/14/2025 Blood pressure systolic 120 mm Hg 01/15/20 25 Blood pressure diastolic 62 mm Hg 025 Heart Rate 88 /min 01/14/2025 Height 62.75 in 01/14/2025 BMI 25.1 kg/m2 01/14/2025 Encounters Encounter Location Date Provider Diagnosis Kristal-Prashant [address] [facility] [address] [facility] [address] [place], [place] [id number] 01/14/2025 Tiffanie Campos Hair loss L65.9 ; Ty pe 2 diabetes, HbA1c goal < 7% E11.9 ; Abnormal thyroid blood test R79.89 and BMI 25.0-25.9,adult Z68.25 Assessments Encounter Date Diagnosis (ICD Code) Assessment Notes Treatment Notes Treatment Clinical Notes Section Notes 01/14/2025 Hair loss (ICD-10 - L65.9) 01/14/2025 Type 2 diabetes, HbA1c goal < 7% (ICD-10 - E11.9) 01/14/2025 Abnormal thyroid blood test (ICD-10 - R79.89) 01/14/2025 BMI 25.0-25.9,adult (ICD-10 - Z68.25) Plan Of Treatment Medication Medication Name Sig Start Date Stop Date Notes Mounjaro 7.5 MG/0.5ML 7.5 mg Subcutaneous once a week Next Appt Details Follow Up: via phone to repo rt test results, Reason: Provider Name:Tiffaniekristal patino, 07/17/2025 10:00:00 AM, [address] [facility] [address] [facility], [address], [place], [place], [id number], Progress Notes * ANITA STILLOB: (34 yo F)Acc No.[id number]:01/14/2025 Progress Notes Patient: ANITA LEVY Provider: ZAKIA Rodriguez :1990 A ge:34 Y S ex:Female Date:01/14/2025 Address:[address] [place] [id number] Pcp:Lance Garcia Subjective: * Chief Complaints: * 1 . 3 months. * HPI: E ndocrinology: 34 year old female presents with c/o Recent Blood Sugars P t here to f/u on DM 2. Pt states she is doing well and does not have any concerns today other than hair loss. * ROS: D ERMATOLOGY: no R ellen. [...] Orally Once a day , Taking Mounjaro 7.5 MG/0.5ML Solution Auto-injector INJECT 1 PEN SUBCUTANEOUSLY ONCE A WEEK , Discontinued Mounjaro 5 MG/0.5ML Solution Auto-injector INJECT 1 SYRINGE SUBCUTANEOUSLY ONCE A WEEK , Medication List reviewed and reconciled with the patient * Allergies: P enicillins. Objective: * Vitals: W t: 140.6, Temp: 98.0, BP: 120/62, HR: 88, Nurse: diana, Ht: 62.75, BMI:25.1. * Examination: G eneral Examination: General Appearance: N AD. H EENT: u nremarkable.?Oral cavity: n o lesions, mucosa moist and WNL, no erythema. N jairon: s upple, no lymphadenopathy. C hest: n ormal shape and expansion. H eart: R SR. L ungs: c lear to auscultation. A bdomen: b owel sounds present, soft and nontender, no organomegaly or masses, no guarding or rigidity. N eurologic Exam: I ntact, gait normal. S kin: n ormal, no rash. P eripheral pulses: n ormal (2+) bilaterally. E xtremities: n o leg edema. Assessment: * Assessment: 1. H air loss - L65.9 (Primary) 2 . T ype 2 diabetes, HbA1c goal < 7% - E11.9 3 . A bnormal thyroid blood test - R79.89 4 . B OR 25.0-25.9,adult - Z68.25 Plan: * Treatment: Value Reference Range A /G Ratio 1.6 1.1-2.5 - * A lbumin 4.6 3.5-5.3 - g/dL * A lkaline Phosphatase 101 35-121 - IU/L * A LT (SGPT) 26 <5-47 - IU/L * A ST (SGOT) 18 <5-40 - IU/L * B ilirubin, Total 0.5 <0.2-1.2 - mg/dL * B UN 8 6-20 - mg/dL * C alcium 9.8 8.6-10.4 - mg/dL * C hloride 104 97-108 - mmol/L * C O2 25 20-32 - mmol/L * C reatinine 0.67 0.50-1.00 - mg/dL * G lucose 76 65-99 - mg/dL * P otassium 4.7 3.5-5.3 - mmol/L * S odium 140 135-145 - mmol/L * P rotein 7.4 6.0-8.3 - g/dL * e GFR by Creatinine 115 >59 - mL/min/1.73m2 * Lanette Campbell 01/16/2025 01:2 4:13 PM EDT >pt informed ?LAB: P-T4 Free (thyroxine) (Collection Date & Time - 01/14/2025 08:34 AM)? Normal* Value Reference Range T hyroxine Free (free T4) 1.28 0.86-1.76 - ng/d L * Hernandodeb Lanette 01/16/2025 01:2 3:37 PM EDT >pt informed ?LAB: P-TSH (Collection Date & Time - 01/14/2025 08:34 AM)?Normal* Value Reference Range T SH 0.55 0.43-5.25 - mU/L * HernandodebLanette 01/16/2025 01:2 3:46 PM EDT >pt informed ?LAB: CBC Venipuncture (in house) (Collection Date & Time - 01/14/2025)? Normal* Value Reference Range w bc 8.0 3.5 - 10 * l ymph 36.8 15 - 50 * m id 6.7 2 - 15 * g ran 56.5 35 - 80 * r bc 6.56 3.5 - 5.5 * h gb 19.4 11.5 - 16.5 * h ct 60.3 35 - 55 * m cv 92.0 75 - 100 * m ch 29.6 25 - 35 * m chc 32.2 31 - 38 * p latlet 371 100 - 400 * Stephanie Sol 01/14/2025 1 1:13:40 AM EDT >Lanette Campbell 01/16/2025 01:24:00 PM EDT >pt informed 2.?Type 2 diabetes, HbA1c goal < 7%? Start Mounjaro Solution Auto-injector, 7.5 MG/0.5ML, 7.5 mg, Subcutaneous, once a week, 4, Refills 5.?LAB: Glycohemoglobin A1c (in house) (Collection Date & Time - 01/14/2025)? 5.0* Value Reference Range g lycohemoglobin 5.0% 5 - 6.5 % * Stephanie Sol 01/14/2025 1 1:10:06 AM EDT >Lanette Campbell 01/16/2025 01:24:22 PM EDT >pt informed * Procedure Codes: 8 3036 GLYCATED HEMOGLOBIN TEST, Modifiers: QW , [address] CBC WITH AUTO DIFF, 3044F HG A1C LEVEL LT 7.0%, 1036F TOBACCO NON-USER, G8420 BMI<30 AND >=22 CALC & DOCU, 3074F SYST BP LT 130 MM HG, 3078F DIAST BP < 80 MM HG * Follow Up: v ia phone to report test results * Images: Billing Information: * Visit Code: 73171 Office Visit, Est Pt., Level 4. * Procedure Codes: 50509 GLYCATED HEMOGLOBIN TEST. Modifiers: QW [address]49[address] CBC WITH AUTO DIFF. 3044F HG A1C LEVEL LT 7.0%. 1036F TOBACCO NON-USER. G8420 BMI<30 AND >=22 CALC & DOCU. 3074F SYST BP LT 130 MM HG. 3078F DIAST BP < 80 MM HG. * Electronic signature of ZAKIA Diaz on 02/12/2025 at 02:18 PM EDT Sign off status: Pending * Provider: ZAKIA Rodriguez Date: 0 01/14/2025 Generated for Printi ng/Faxing/eTransmitting on: 0 02/12/2025 02:18 PM EDT History and Physical Notes * HPI (History of Present Illness) Category Sub-Category Detail Notes Category Not es Endocrinology Recent Blood Sugars Pt here to f /u on DM 2. Pt states she is doing well and does not have any concerns today other than hair loss Examination Category Sub-Category Detail Notes Category Not [...]
--- NOTE | 2025-02-12 14:11 | CT_ITS ---
FINAL REPORT TECHNIQUE: Thin section axial images were obtained from the lung bases to the pubic symphysis without IV contrast. Coronal reconstruction images were obtained from the axial data. Exam was performed using dose reduction technique. CLINICAL HISTORY: RUQ PAIN COMPARISON: none FINDINGS: Moderate right hydronephrosis related to an obstructing 7 mm right UPJ stone. No other renal or ureteral stone identified. Status post cholecystectomy. The remaining unenhanced solid abdominal organs are unremarkable. There is no evidence of small bowel obstruction. The appendix is normal. GI tract is without acute abnormality. Uterus is unremarkable for age. There is a 31 mm right ovarian cyst, likely functional given patient's age. There is no lymphadenopathy or ascites. No acute osseous abnormality is identified. IMPRESSION: Obstructing 7 mm right UPJ stone. Right ovarian cyst, likely functional. Can follow with ultrasound in 6 or 10 weeks if indicated. Reviewed, Interpreted and Dictated by Jocelyn Voss MD Transcribed by Nitza Francisco Authenticated and . [facility]
--- OUTSIDE RECORDS SUMMARY | 2025-02-12 14:18 | XMS_ITS | Clinical Summary ---
[facility] Organization [facility] Address [address] [place] [address] Care Team Providers Care Legal Mediator Name Role Phone Provider, No Known Primary Care Provider Unavail able Allergies Active Allergy Reactions Criticality Noted Date Comments Penicillins Rash Low 10/29/2017 Medications Multiple Vitamins-Minera ls (MULTIVITAMIN ADULT PO) Take 2 tablets by mouth Daily. Active ferrous sulfate 325 (65 FE) MG tablet Take 325 mg by mouth Daily With Breakfast. Active Active Problems Problem Noted Date Diagnosed Date Family history of congenital heart defect 2017 10/29/2017 Social History Tobacco Use Types Packs/Day Years Used Date Smoking Tobacco: Never Smokeless Tobacco: Never Alcohol Use Standard Drinks/Week Comments No 0 (1 standard drink = 0.6 oz pur e alcohol) Abuse Screen Answer Date Recorded Unsafe at Home or Work/School Not on file Feels Threatened by Someone? Not on file 06/2023 Does Anyone Keep You from Co ntacting Others or Doint Things Outside the Home? Not on file 04/12/2023 Physical Sign of Abuse Present Not on file 1 Housing Stability Answer Date Recorded Current Living Arrangements Not on file 04/01 Potentially Unsafe Housing Conditions Not on nelson e 04/12/2023 Family and Community Support Answer Bernardino e Recorded Help with Day-to-Day Activities Not on file 04/12/2023 Lonely or Isolated Not on file 04/12/2023 Employment Answer Date Recorded Do you want help finding or keeping work or a spring b? Not on file 04/12/2023 Disabilities Answer Date Recorded Concentrating, Remembering, or Making Decisions Difficulty Not on file 04/12/2023 Doing Errands Independently Difficulty Not on fi le 04/12/2023 Education Answer Date Recorded Help with school or training? Not on file Preferred Language Not on file 04/12/2023 Comments No Sex and Gender Information Value Date Recorded Sex Assigned at Not on file Legal Sex Female 4:08 PM EDT Gender Identity Not on file Sexual Orientation Not on file Last Filed Vital Signs Vital Sign Reading Time Taken Comments Blood Pressure 123/69 10/29/2017 8:58 AM EDT Pulse - - Temperature - - Respiratory Rate - - Oxygen Saturation - - Inhaled Oxygen Concentration - - Weight 83 kg (183 lb) 10/29/2017 8:58 AM EDT Height 157.5 cm (5' 2 ) 10/29/2017 9:01 AM EDT Body Mass Index 33.47 10/29/2017 8:58 AM EDT Plan of Treatment Health Maintenance Due Date Last Done Comments Annual Gynecologic Pelvic an d Breast Exam 1990 TDAP/TD VACCINES (1 - Tdap) 02/27/2007 ANNUAL PHYSICAL 10/29/2017 HEPATITIS C SCREENING 10/29/2017 COVID-19 Vaccine ( - 2023-2 5 season) 2024 INFLUENZA VACCINE 04/01/2025 Pneumococcal Vaccine 0-49 Aged Out No longer eligible based on patient's age to complete this topic Insurance PPO Care Teams Legal Mediator Relationship Specialty Start Date End Date Provider, No Known [facility] [place] [address] PCP - General 10/23/17
--- OUTSIDE RECORDS SUMMARY | 2025-02-12 14:19 | XMS_ITS | Encounter Summary ---
Author Organization [facility] Address [address] [id number] Care Team Providers Care Infection Control Specialist Name Role Phone Tiffanie Campos Primary Care Provider [phone] Encounter Details Date Type Department Care Team (Late st Contact Info) Description 10/22/2018 [facility] Historical OTTR [address] [place] [address] Pedro Pablo Milton RN [facility] [address] [place] [address] Social History Tobacco Use Types Packs/Day Years Used Date Smoking Tobacco: Never Assessed Comments Unknown Sex and Gender Information Value Date Recorded Sex Assigned at Female 11/25/2021 6:14 PM EDT Legal Sex Female 7:34 PM EDT Gender Identity Female 11/25/2021 6:14 PM EDT Sexual Orientation Not on file documented as of this encounter Miscellaneous Notes * Progress Notes - Pedro Pablo Milton 10/22/2018 8:31 AM EDT Reviewed evaluation. Pt is not a candidate due to CT finding, needs to see rheumatology for possible vasculitis. * Progress Notes - Pedro Pablo Milton 10/15/2018 8:47 AM EDT Reviewed evaluation. Will need CRP and ESR,consider referral to rheumology concerns regarding RAMIREZ/Takayasu. * Progress Notes - Pedro Pablo Milton 09/17/2018 8:45 AM EDT Reviewed labs, OK to proceed. * Progress Notes - Pedro Pablo Milton R - 07/30/2018 8:29 AM EST Reviewed HTN hx, OK to proceed. * Progress Notes - Pedro Pablo Milton R - 07/09/2018 8:08 AM EST OK to start evaluation. Discuss HTN. * Progress Notes - Justyna Aguilar - 07/09/2018 7:57 AM EST 28 y/o donor for her , (26, eval) MEDS: [place] [employer] PMH: Gestational hypertension, youngest child 4 months SX: Cholecystectomy, Exc. Cyst Right Wrist FM HX: Hypertension, Thyroid Dz, earth science teacher, , 3 children BMI: 30 documented in this encounter Plan of Treatment Not on file documented as of this encounter Visit Diagnoses Not on filedocumented in this encounter Care Teams Infection Control Specialist Relationship Specialty Start Date End Date Tiffanie Campos PA [address] [place] [address] [address] [place] [address] PCP - General 10/03/21 documented as of this encounter
--- OUTSIDE RECORDS SUMMARY | 2025-02-12 14:19 | XMS_ITS | Clinical Summary ---
Author Organization [facility] Address [address] 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 Kelley Diabetes mellitus, gestational 09/10/2013 Family historic risk of congenital abnormality 0 09/10/2013 Immunizations Immunization Administration Dates Next Due Hib (PRP-T) 11/15/2021 Meningococcal B, Omv 01/10/2022,11/15/2021 Meningococcal MCV4O 01/10/2022,11/15/2021 Pneumococcal Conjugate PCV 13 11/15/2021 Pneumococcal Polysaccharide PPV23 01/10/2022 Family History Medical History Relation Name Comments Conversions - Other Maternal Grandfather Lc Young Kidney atrophy Heart disease Maternal Grandfather Lc Young Cancer Maternal Grandmother Estela Young Hypothyroidism Mother Cardiac disorder Other 1 Hypertension Other 2 Colon cancer Other 3 Relation Name Status Comments Maternal Grandfather Junior Young Maternal Grandmother Estela Young Mother Other 1 Other 2 Other 3 Social History Tobacco Use Types Packs/Day Years Used Date Smoking Tobacco: Never Smokeless Tobacco: Never Tobacco Cessation:Counseling Given: Not Answered Alcohol Use Standard Drinks/Week Comments Never 0 (1 standard drink = 0.6 oz pur e alcohol) PHQ-2 Answer Date Recorded Patient Health Questionnaire-2 Score 0 09/04/2022 PHQ-2A Answer Date Recorded Patient Health Questionnaire-2 Score 0 09/04/2022 Comments No Sex and Gender Information Value Date Recorded Sex Assigned at Female 11/25/2021 6:14 PM EDT Legal Sex Female 7:34 PM EDT Gender Identity Female 11/25/2021 6:14 PM EDT Sexual Orientation Not on file Last Filed Vital Signs Vital Sign Reading Time Taken Comments Blood Pressure 139/84 10/23/2023 9:31 AM EDT Pulse 70 10/23/2023 9:31 AM EDT Temperature 36.7 C (98 F) 09/04/2022 2:28 PM EST Respiratory Rate 16 09/04/2022 2:28 PM EST Oxygen Saturation 100% 01/10/2022 4:18 PM EDT Inhaled Oxygen Concentration - - Weight 84.8 kg (187 lb) 10/23/2023 9:31 AM EDT Height 157.5 cm (5' 2 ) 10/23/2023 9:31 AM EDT Body Mass Index 34.2 10/23/2023 9:31 AM EDT Plan of Treatment Health Maintenance Due Date Last Done Comments [facility]-Infant/Child/Adol SDOH Screenings 1988 [facility]-Varicella Vaccines (1 of 2 - 13+ 2-dose series) 02/27/2001 [facility]- SDOH Screenings 02/27/2006 [facility]-Adult SDOH Screenings 02/27/2006 [facility]-DTaP,Tdap,and Td Vaccines (1 - Tdap) 02/27/2007 [facility]-Hepatitis B Vaccines (1 of 3 - 19+ 3-dose series) 02/27/2007 [facility]-Pap Smear 02/27/2009 HPV Vaccines (1 - 3-dose SCDM series) 02/27/2015 [facility]-Cervical Cancer Screening 02/27/2018 [facility]-HPV/Cotest 02/27/2018 [id number]-68 Vaccine (3 - Moderna risk series) 09/03/2020 08/06/2020, 07/06/2020 [facility]-Depression Screening 09/05/2023 09/04/2022, 12/30 [facility]-Influenza Vaccine (#1) 2025 05/09/2022, [facility]-Pneumococcal Vaccine: Pediatrics (0 to 5 Years) and At-Risk Patients (6 to 49 Years) (3 of 3 - PCV20 or PCV21) 02/27/2038 01/10/2022, 11/15/2021, 02/12/2020, Additional history exists [facility]-Zoster Vaccines (1 of 2) 02/27/2038 [facility]-HIV Screening Completed 10/11/2018 [facility]-Hepatitis C Screening Completed 10/11/2018 [facility]-HIB Vaccines Aged Out 11/15/2021 No longer e ligible based on patient's age to complete this topic [facility]-Obesity Intervention Completed 024, 10/23/2023, 04/30/2023, Additional history exists [facility]-Hepatitis A Vaccines Aged Out No longer eligible based on patient's age to complete this topic [facility]-IPV Vaccines Aged Out No longer e ligible based on patient's age to complete this topic [facility]-Rotavirus Vaccines Aged Out No lo nger eligible based on patient's age to complete this topic Procedures Procedure Name Priority Date/Time Associated Diagnosis Comments HEPATITIS C ANTIBODY W/REFLEX TO HCV QUANT PCR Routine 10/11/2018 9:18 AM EDT HIV 1/2 ANTIBODY/ANTIGEN SCREEN WITH REFLEX TO HIV I/II DIFFERENTIATION Routine 10/11/2018 9:18 AM EDT from Last 3 Months or Most Recently Relevant to Health Maintenance Results * HIV 1 & 2 Antibody/Antigen Screen (10/11/2018 9:18 AM EDT) HIV 1 Result NONREACTIVE Screening for HIV 1 and 2 antibodies is NONREACTIVE. No confirmatory testing is required. SUNQUEST 10/11/2018 9:18 AM EDT 10/11/2018 10:27 AM EDT us Bettye Allen MD LAB BLOOD ORDERABLES Final Resul t Performing Organization Address City/[facility]/ZIP Co de Phone Number SUNQUEST * Hepatitis C Antibody (10/11/2018 9:18 AM EDT) Hepatitis C Antibody NEGATIVE Reference Range: Negative SUNQUEST 10/11/2018 9:18 AM EDT 10/11/2018 10:27 AM EDT us Bettye Allen MD LAB BLOOD ORDERABLES Final Resul t SUNQUEST from Last 3 Months or Most Recently Relevant to Health Maintenance Insurance ANTHE[employer] Advance Directives * Full Code (Latest Code Status on File) Date Activated Date Inactivated Comments 11/25/2021 11:18 AM 11/30/2021 1:14 PM Question Answer Comments Patient has decision-making capacity? Yes Care Teams Personnel Security Specialist Relationship Specialty Start Date End Date Tiffanie Campos PA [address] [facility] [address] [id number] [facility] - General 10/03/21
--- OUTSIDE RECORDS SUMMARY | 2025-02-12 14:19 | XMS_ITS | Encounter Summary ---
Author Organization [facility] Address [address] [place] [address] Care Team Providers Care Microbiology Manager Name Role Phone Tiffanie Campos Primary Care Provider [phone] Encounter Details Date Type Department Care Team (Late st Contact Info) Description 11/18/2018 [facility] OT[facility] Encounter Historical OTTR [address] [place] [address] Justyna Aguilar, [place] [address] Social History Tobacco Use Types Packs/Day Years Used Date Smoking Tobacco: Never Assessed Comments Unknown Sex and Gender Information Value Date Recorded Sex Assigned at Female 11/25/2021 6:14 PM EDT Legal Sex Female 7:34 PM EDT Gender Identity Female 11/25/2021 6:14 PM EDT Sexual Orientation Not on file documented as of this encounter Miscellaneous Notes * Progress Notes - Justyna Aguilar - 11/18/2018 11:53 AM EDT Called Pt re: Rheumatology appointment and instructions. * Progress Notes - Justyna Aguilar - 11/15/2018 1:27 PM EDT Order entered in [facility] for Rheumatology consult. * Progress Notes - Justyna Aguilar - 11/05/2018 1:28 PM EDT Pt. contacted me and would like to have a referral for Rheumatology at . * Progress Notes - Justyna Aguilar - 10/22/2018 4:01 PM EDT Called Pt. re: committee decision. Discussed lab results, CT results and risks of donation. She verbalized understanding. Discussed referral to Rheumatology, she states she would like records for herPCP, she will make an appointment and get referral Rheumatology. Will send records. Verified contact numbers for assistance with referral if needed. * Progress Notes - Justyna Aguilar - 10/22/2018 7:57 AM EDT Result for labs: ESR 36 CRP 0.2 * Progress Notes - Shane Raygoza MD - 10/17/2018 4:46 PM EDT Pt called and left a vm. Please contact at [phone] * Progress Notes - Justyna Aguilar - 10/15/2018 1:17 PM EDT Called Pt. re: committee decision. Discussed evaluation results and plan for labs. She would like to have done locally at [facility] if possible. T: [phone] or [phone] * Progress Notes - Justyna Aguilar - 10/11/2018 10:02 AM EDT Met with Pt in clinic. Wishes to donate to her . Reviewed donor evaluation and consent including risks of evaluation, donation and living with solitary kidney. Reviewed benefit, importance and expectation of post donation f/u visits with the Transplant center. Reviewed high risk behaviors, pt completed questionnaire. Reviewed skin cancer self-exam; discussed self-screening. Pt denies any concerns, instructed to review with physician. Jul 2018 SRTR data discussed and copy to pt. Questions answered, Pt verbalizes understanding. Consent obtained. Pt wishes to proceed with evaluation. Labs / crossmatch / testing results pending. * Progress Notes - Shane Raygoza MD - 10/04/2018 9:41 AM EDT DOS 10/11/2018 CTA Kidney Donor pre op kidney donor RLD plan code NPR updating IAuth and nurse. * Progress Notes - Justyna Aguilar - 09/30/2018 9:54 AM EDT Orders entered in [facility] to complete eval. on 10.11.2018. Confirmed new donor eval consult with Dr. Chang and he is available. * Progress Notes - Shane aRygoza MD - 09/20/2018 2:20 PM EDT MRN in OTTR, SCM and APM * Justyna Be - 09/20/2018 12:51 PM EDT Called Pt. re: committee decision. Discussed completing evaluation. She states she would like to proceed with testing. She would like to schedule for Sunday, 10.11.2018. Will need MRN..... * Justyna Be - 09/05/2018 10:38 AM EST Pt. returned call. Discussed starting evaluation and she wishes to proceed. will send orders for local labs. * Justyna Be - 08/05/2018 12:45 PM EST Contacted Pt. re: committee decision to start the donor evaluation. Message left. * Progress Justyna Jimenes - 07/23/2018 1:13 PM EST Pt. states she does not plan to have any more children. * Progress Justyna Jimenes - 07/23/2018 1:07 PM EST Pt. contacted id and states she had hypertension requiring medication (Labetalol) in the last 2 weeks of her 1st and 3rd pregnancies. She states she delivered both babies @ 37 weeks. * Justyna Be - 07/20/2018 7:04 PM EST Contacted Pt. re: the committee decision. Message left requesting information re: gestational hypertension and starting the donor evaluation. * Justyna Be - 07/15/2018 3:47 PM EST Called Pt. re: committee decision, message left for return call. documented in this encounter Plan of Treatment Not on file documented as of this encounter Procedures Procedure Name Priority Date/Time Associated Diagnosis Comments OTTR LAB RESULTS (MANUAL) Routine 09/17/2019 12:27 PM EDT OTTR LAB RESULTS (MANUAL) Routine 08/20/2019 2:53 PM EST OTTR LAB RESULTS (MANUAL) Routine 10/11/2018 9:18 AM EDT OTTR LAB RESULTS (MANUAL) Routine 09/16/2018 2:20 PM EDT OTTR LAB RESULTS (MANUAL) Routine 09/09/2018 12:22 PM EDT documented in this encounter Results * OTTR LAB RESULTS (MANUAL) (09/17/2019 12:27 PM EDT) External Estimated GFR 123.14 EXTERNAL LAB 09/17/2019 12:2 7 PM EDT Narrative EXTERNAL LAB - 09/17/2019 2:07 PM EDT Automated LAB Interface Historical Provider MD LAB BLOOD ORDERABLES Sasha l Result Performing Organization Address City/[facility]/ZIP Co de Phone Number EXTERNAL LAB * OTTR LAB RESULTS (MANUAL) (08/20/2019 2:53 PM EST) Pathologist [facility] [place] External Estimated GFR 109.11 EXTERNAL LAB 08/20/2019 2:53 PM EST Narrative EXTERNAL LAB - 08/20/2019 7:11 PM EST Automated LAB Interface Historical Provider MD LAB BLOOD ORDERABLES Sasha l Result Performing Organization Address [facility] Co de Phone Number EXTERNAL LAB * OTTR LAB RESULTS (MANUAL) (10/11/2018 9:18 AM EDT) Pathologist [facility] [place] External Estimated GFR 115.04 EXTERNAL LAB 10/11/2018 9:18 AM EDT Narrative EXTERNAL LAB - 10/11/2018 11:33 AM EDT Automated LAB Interface Historical Provider MD LAB BLOOD ORDERABLES Sasha l Result Performing Organization Address [facility]/ZIP Co de Phone Number EXTERNAL LAB * OTTR LAB RESULTS (MANUAL) (09/16/2018 2:20 PM EDT) External ABO/Rh O+ EXTERNAL LAB External WBC 10.1 k/uL EXTERNAL LAB External Hemoglobin (Hgb) 13.1 gm/dL EXTERNAL LAB External Hematocrit (Hct) 39.7 % EXTERNAL LAB External Platelet Count (Plt) 256 k/uL EXTERNAL LAB External Sodium (Na) 141 mmol/L EXTERNAL LAB External Potassium (K) 3.9 mmol/L EXTERNAL LAB External Chloride (Cl) 103 mmol/L EXTERNAL LAB External Alkaline Phosphatase 151 U/L EXTERNAL LAB External Phosphorus 4.1 mg/dL EXTERNAL LAB External Calcium (Ca) 9.0 mg/dL EXTERNAL LAB External Carbon Dioxide (CO2) 26 mmol/L EXTERNAL LAB External Creatinine Blood 0.82 mg/dL EXTERNAL LAB External BUN 11 mg/dL EXTERNAL LAB External Albumin 4.1 g/dL EXTERNAL LAB External Red Blood Cell (RBC) 4.64 M/uL EXTERNAL LAB External Glucose 85 mg/dL EXTERNAL LAB External Total Protein 7.7 g/dL EXTERNAL LAB External Bilirubin Total 0.4 mg/dL EXTERNAL LAB External Gamma Glutamyl Transpeptidase (GGT) 95 IU/L EXTERNAL LAB External Creatine Kinase 60 U/L EXTERNAL LAB External AST (SGOT) 19 units/L EXTERNAL LAB External ALT (SGPT) 42 units/L EXTERNAL LAB External Hemoglobin A1c 5.7 % EXTERNAL LAB External Uric Acid 5.0 mg/dL EXTERNAL LAB External Urine Bilirubin neg mg/dL EXTERNAL LAB External Urine Blood Trace I EXTERNAL LAB External Urine Glucose neg mg/dL EXTERNAL LAB External Urine pH 6.0 EXTERNAL LAB External Urine Nitrite neg EXTERNAL LAB External Urine Leukocyte Esterase 1+ EXTERNAL LAB External Urine Ketone neg mg/dL EXTERNAL LAB External Urine Color Yellow EXTERNAL LAB External Urine Appearance Clear EXTERNAL LAB External Urine Protein neg mg/dL EXTERNAL LAB External Urine Urobilinogen 0.2 mg/dL EXTERNAL LAB External Urine WBC 10-20 /HPF EXTERNAL LAB External Urine Specific [place] 1.020 EXTERNAL LAB External Estimated GFR 86.42 EXTERNAL LAB 09/16/2018 2:20 PM EDT Narrative EXTERNAL LAB - 09/16/2018 4:24 PM EDT Other us Historical Provider MD LAB BLOOD ORDERABLES Sasha l Result EXTERNAL LAB * OTTR LAB RESULTS (MANUAL) (09/09/2018 12:22 PM EDT) External Creatinine Clearance Urine Volume 1,250 mL EXTERNAL LAB External Creatinine Urine 1,138 mg/dL EXTERNAL LAB External Total Protein/Day (24Hr Urine) 136 mg/dL EXTERNAL LAB External Creatinine Blood 0.82 mg/dL EXTERNAL LAB External Estimated GFR 86.42 EXTERNAL LAB 09/09/2018 12:2 2 PM EDT Narrative EXTERNAL LAB - 10/11/2018 12:29 PM EDT Other us Historical Provider LAB BLOOD ORDERABLES Sasha gonzáles Result EXTERNAL LAB documented in this encounter Visit Diagnoses Not on filedocumented in this encounter Care Teams Microbiology Manager Relationship Specialty Start Date End Date Tiffanie Campos PA [facility] [address] [place] [address] PCP - General 10/03/21 documented as of this encounter
--- OUTSIDE RECORDS SUMMARY | 2025-02-12 14:19 | XMS_ITS | Patient Health Record ---
Author Organization [facility] Address [address] [facility] 36 [facility] [address] [place] [id number] Care Team Providers Care Concrete Grinder Operator Name Role Phone Lance Garcia Primary Care Provider Tiffanie Campos Unavailable [phone] Allergies Allergen (clinical drug ingredient) Drug/Non Drug Allergy documented on EMR Reaction Allergy Type Onset Date Status Substance with penicillin structure and antibacterial mechanism of action (substance) Penicillins Unknown Drug Allergy Active Results Component Value Reference Range Notes P-Comprehensive Metabolic Pa silvino (CMP) Reviewed date:10/09/2024 02:08:32 PM Interpretation: Normal Performing Lab: Notes/Report: Test performed by [employer] [facility] , [address], [place] [address] Mitchel Jauregui MD, Core Analyst CLIA: [id number] Sodium 139 135-145 mmol/L Potassium 4.8 3.5-5.3 [...] Normal Performing Lab: Notes/Report: Test performed by [employer] [address] , [place] [address] Mitchel Jauregui MD, Core Analyst CLIA: [id number] Thyroxine Free (free T4) 1.24 0.86-1.76 ng/dL P-Hemoglobin A1C Reviewed date:10/09/2024 02:08:32 PM Interpretation:5.3% Performing Lab: Notes/Report: Test performed by [employer] [address] , [place] [address] Mitchel Jauregui MD, Core Analyst CLIA: [id number] Hemoglobin A1C 5.3 <5.7 % The following HbA1c ranges recommended by the [place] [employer] (ADA) may be used as an aid in the diagnosis of diabetes mellitus. HbA1c Suggested Diagnosis >=6.5% Diabetic 5.7% - 6.4% Pre-Diabetic <5.7% Non-Diabetic P-TSH Reviewed date:10/09/2024 02:08:32 PM Interpretation: Normal Performing Lab: Notes/Report: Test performed by [employer] [address] , [place] [address] Mitchel Jauregui MD, Core Analyst CLIA: [id number] TSH 0.97 0.43-5.25 mU/L Estimated Average Glucose Reviewed date:10/09/2024 02:08:32 PM Interpretation: Normal Performing Lab: Notes/Report: Test performed by [employer] [address] [place], [place] [address] Mitchel Jauregui MD, Core Analyst CLIA: [id number] Estimated Average Glucose (eAG) 105 Estimated Average Glucose (eAG) is calculated using the equation eAG = (28.7 x HbA1c) - 46.7 based on the guidelines established by the ADA. If the patient has certain diseases including kidney disease, sickle cell anemia, thalassemia, or is taking medications such as dapsone, erythropoietin, or iron, eAG should not be evaluated. CBC Venipuncture (in house) Reviewed date:01/16/2025 01:24:08 [...] Interpretation:Normal Performing Lab: Notes/Report: Test performed by [employer] [address] [place] [address] , [address], [place] [address] Mitchel Jauregui MD, Core Analyst CLIA: [id number] Sodium 140 135-145 mmol/L Potassium 4.7 3.5-5.3 [...] Interpretation:Normal Performing Lab: Notes/Report: Test performed by [employer] [address] [place] [address] , [address], [place] [address] Mitchel Jauregui MD, Core Analyst CLIA: [id number] Thyroxine Free (free T4) 1.28 0.86-1.76 ng/dL P-TSH Reviewed date:01/16/2025 01:23:51 PM Interpretation:Normal Performing Lab: Notes/Report: Test performed by [employer] [facility] , [address], [place] [address] Mitchel Jauregui MD, Core Analyst CLIA: [id number] TSH 0.55 0.43-5.25 mU/L CBC Fingerstick (in house) ( Not yet reviewed by provider) Interpretation: Performing Lab: Notes/Report: wbc 26.1 3.5 - 10 lym 31.7 15 - 50 mid 6.4 2 - 15 gran 61.9 35 - 80 rbc 4.40 3.5 - 5.5 hgb 13.3 11.5 - 16.5 hct 39.7 35 - 55 mcv 90.3 75 - 100 mch 30.4 25 - 35 mchc 33.6 31 - 38 plat 203 100 - 400 Urinalysis - Inhouse (Not ye t reviewed by provider) Interpretation: Performing Lab: Notes/Report: Color/Clarity d yellow/ clear Leuk trace Nitrite neg Urobili 3.2 Protein 2+ pH 6.0 Blood 3+ Sp. Gr. >=1,030 Ketone trace Bili 1+ Gluc neg Reason For Referral No Information Medications Medication SIG (Take, Route, Fr equency, Duration) Notes Start Date End Date Status Mounjaro 7.5 MG/0.5ML 7.5 mg Subcutaneou s once a week Active Mounjaro 7.5 MG/0.5ML INJECT 1 PEN SUBCU TANEOUSLY ONCE A WEEK; Duration: 28 Active metFORMIN HCl ER 500 MG 1 tablet with ev ening meal Orally Once a day; Duration: 90 days Active Nexplanon 68 MG 1 ea subcutaneously once; Duration: 1 dose(s) Active Spironolactone 50 MG 1 tablet Orally Onc e a day; Duration: 30 day(s) Active Immunizations Vaccine Route Administration Date Status Comme nts COVID 19 Moderna Unknown 07/06/2020 Administered COVID 19 Moderna Unknown 08/06/2020 Administered Fluzone PF Quad (6-35 months) Unknown 04/26/2021 Administered Fluzone PF Quad (6-35 months) Unknown 05/09/2022 Administered Menactra IM Intramuscular 05/17/2019 Administered PNEUMOVAX 23 VACCINE Unknown 01/10/2022 Administered Prevnar (PCV13) IM Intramuscular 05/17/2019 Administered Prevnar (PCV13) IM Intramuscular 02/12/2020 Administered Prevnar (PCV13) Unknown 11/15/2021 Administered Problems Problem Type SNOMED Code ICD Code Onset Dates Problem Status W/U Status Risk Notes Problem Obesity (844559407) Obesity (BMI 30-39.9) (E66.9) Active confirmed Problem Splenic artery aneurysm (88849027) Splenic artery aneurysm (I72.8) Active confirmed Problem 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 Problem Pancreatic artery aneurysm (I72.8) Active confirmed Problem Type II diabetes mellitus without complication (677179629) Type 2 diabetes, HbA1c goal < 7% (E11.9) Active confirmed Vital Signs Heart Rate 92 /min 02/12/2025 Blood pressure diastolic 72 mm Hg 02/12/2025 Height 62.75 in 02/12/2025 Blood pressure systolic 112 mm Hg 02/12/2025 Weight 134.2 lbs 02/12/2025 BMI 23.96 kg/m2 02/12/2025 Encounters Encounter Location Date Provider Diagnosis [facility] [address] [facility] [address] [place] [id number] 07/03/2024 Tiffanie Campos Type 2 diabetes, HbA 1c goal < 7% E11.9 and Obesity (BMI 30-39.9) E66.9 [facility] [address] [facility] [address] [place] [id number] 10/03/2024 Tiffaniekristal Campos Type 2 diabetes, HbA 1c goal < 7% E11.9 and Abnormal thyroid blood test R79.89 [facility] [address] [facility] [address] [place] [id number] 01/14/2025 Tiffanie Campos Hair loss L65.9 ; Ty pe 2 diabetes, HbA1c goal < 7% E11.9 ; Abnormal thyroid blood test R79.89 and BMI 25.0-25.9,adult Z68.25 [facility] [address] [facility] [address] [place] [id number] 02/12/2025 Tiffanie Crowdy Right lower quadrant pain R10.31 ; Right flank pain R10.9 and Hematuria, unspecified type R31.9 [facility] [address] [place] [id number] 07/03/2024 Lance Garcia [facility] [address] [place] [id number] 08/04/2024 Lance Garcia Type 2 diabetes, HbA 1c goal < 7% E11.9 Assessments Encounter Date Diagnosis (ICD Code) Assessment Notes Treatment Notes Treatment Clinical Notes Section Notes 07/03/2024 Obesity (BMI 30-39.9) (ICD-10 - E66.9) 07/03/2024 Type 2 diabetes, HbA1c goal < 7% (ICD-10 - E11.9) Will recheck labs in 3 months along with thyroid studies. 08/04/2024 Type 2 diabetes, HbA1c goal < 7% (ICD-10 - E11.9) 10/03/2024 Abnormal thyroid blood test (ICD-10 - R79.89) 10/03/2024 Type 2 diabetes, HbA1c goal < 7% (ICD-10 - E11.9) 01/14/2025 Hair loss (ICD-10 - L65.9) 01/14/2025 Type 2 diabetes, HbA1c goal < 7% (ICD-10 - E11.9) 02/12/2025 Right flank pain (ICD-10 - R10.9) 02/12/2025 Right lower quadrant pain (ICD-10 - R10.31) 02/12/2025 Hematuria, unspecified type (ICD-10 - R31.9) 01/14/2025 Abnormal thyroid blood test (ICD-10 - R79.89) 01/14/2025 BMI 25.0-25.9,adult (ICD-10 - Z68.25) Plan Of Treatment Pending Test Test Name Order Date Urinalysis - Inhouse 02/12/2025 CBC Fingerstick (in house) 02/12/2025 CT Scan : Abd & Pelvis stone protocol (w ithout contrast) 02/12/2025 P-Culture, Urine 02/12/2025 Next Appt Details Provider Name:Tiffanie patino, 07/17/2025 10:00:00 AM, [address] [facility], [address], [place], [phone], Insurance Providers Payer Name Payer Address Payer Phone Subscriber Number Group Number Insured Name Patient Relationship to Insured Coverage Start Date Coverage End Date CALLIE [address] [place] [address] [id number] ANITA STILL Self - patient is the insured Medical (General) History Medical History History ICD Code aneursyms (spleen, splenic artery, pancr eas, right kidney) Surgical History Surgery Date(Month/Year) cyst removal from Right wrist 2013 Hospitalization History Reason Date(Month/Year) child
== END 2025-02-12 23:59 | disposition home or self-care (01) ==
LOC: RAD 14:09
PROVIDERS: PCP Physician Assistant; Visit Provider Physician Assistant
DX: N20.0 Calculus of kidney (principal); N83.201 Unspecified ovarian cyst, right side
CPT/HCPCS: 74176

== ENCOUNTER 2025-02-12 18:12 | Emergency (ER) | payer BC, SELFPAY ==
[2025-02-12] VITALS (9 sets, daily range): BP systolic 128–164; BP diastolic 68–98; PULSE 60–95; RESP 16–18; TEMP 36.8–37.1; O2SAT 100; BMI 23.9
[2025-02-12 18:27] LABS: Microscopic, Urine URINE MICROSCOPIC (MICROSCOPIC)
--- OUTSIDE RECORDS SUMMARY | 2025-02-12 18:27 | XMS_ITS | Clinical Summary ---
Author Organization [facility] Address [address] [place] [address] Care Team Providers Care Wood Box Maker Name Role Phone Tiffanie Campos Primary Care Provider [phone] Allergies Active Allergy Reactions Criticality Noted Date [...] 02/27/2015 [facility]-Cervical Cancer Screening 02/27/2018 [facility]-HPV/Cotest 02/27/2018 [id number] Vaccine (3 - Moderna risk series) 09/03/2020 [...] ORDERABLES Final Resul t Performing Organization Address City/[facility]/ZIP Co de Phone Number SUNQUEST * Hepatitis [...] Patient has decision-making capacity? Yes Care Teams Wood Box Maker Relationship Specialty Start Date End Date Tiffanie Campos PA [address] [facility] [address] [place] [id number] [facility] - General 10/03/21
--- OUTSIDE RECORDS SUMMARY | 2025-02-12 18:27 | XMS_ITS | Encounter Summary ---
Author Organization [facility] Address [address] [place] [address] Care Team Providers Care Inhalation Therapist Name Role Phone Tiffanie Campos Primary Care Provider [phone] Encounter Details Date Type Department Care Team (Late st Contact Info) Description 11/18/2018 [facility] Encounter Historical [facility]TR [address] [place] [address] Justyna [place]ilar, [place] [address] Social History Tobacco Use Types Packs/Day Years [...] 11/15/2018 1:27 PM EDT Order entered in [facility] for Rheumatology consult. * Progress Notes - [...] and left a vm. Please contact at [phone] * Progress Notes - Justyna Aguilar - 10/15/2018 1:17 PM EDT Called Pt. re: committee decision. Discussed evaluation results and plan for labs. She would like to have done locally at [facility] if possible. T: [phone] or [phone] * Progress Notes - Justyna Aguilar - [...] 09/30/2018 9:54 AM EDT Orders entered in [facility] to complete eval. on 10.11.2018. Confirmed new donor eval consult with Dr. Chang and he is available. * Progress Notes - Shane Raygoza MD - 09/20/2018 2:20 PM EDT MRN [...] - 07/23/2018 1:07 PM EST Pt. contacted mn and states she had hypertension requiring medication [...] 09/17/2019 2:07 PM EDT Automated LAB Interface [facility] MD LAB BLOOD ORDERABLES F inal Result EXTERNAL LAB * OTTR LAB RESULTS (MANUAL) (08/20/2019 2:53 PM EST) Pathologist [facility] External Estimated GFR 109.11 EXTERNAL LAB 08/20/2019 2:53 PM EST Narrative EXTERNAL LAB - 08/20/2019 7:11 PM EST Automated LAB [facility] Provider MD LAB BLOOD ORDERABLES F inal Result EXTERNAL LAB * OTTR LAB RESULTS (MANUAL) (10/11/2018 9:18 AM EDT) Pathologist [facility] External Estimated GFR 115.04 EXTERNAL LAB 10/11/2018 9:18 AM EDT Narrative EXTERNAL LAB - 10/11/2018 11:33 AM EDT Automated LAB Interface [facility] Provider MD LAB BLOOD ORDERABLES F inal Result Performing Organization Address [facility]/ZIP Co de Phone Number EXTERNAL LAB * OTTR LAB RESULTS (MANUAL) (09/16/2018 2:20 PM EDT) Pathologist [facility] External ABO/Rh O+ EXTERNAL LAB External WBC [...] 10-20 /HPF EXTERNAL LAB External Urine Specific [facility] 1.020 EXTERNAL LAB External Estimated GFR 86.42 EXTERNAL LAB 09/16/2018 2:20 PM EDT Narrative EXTERNAL LAB - 09/16/2018 4:24 PM EDT Other us [facility] Provider LAB BLOOD ORDERABLES F inal Result EXTERNAL LAB * OTTR LAB RESULTS [...] LAB - 10/11/2018 12:29 PM EDT Other [facility] Provider LAB BLOOD ORDERABLES F inal Result EXTERNAL LAB documented in this encounter Visit Diagnoses Not on filedocumented in this encounter Care Teams Inhalation Therapist Relationship Specialty Start Date End Date Tiffanie Campos PA [facility] [address] [place] [address] PCP - General 10/03/21 documented as of this encounter
--- OUTSIDE RECORDS SUMMARY | 2025-02-12 18:27 | XMS_ITS | Encounter Summary ---
Author Organization [facility] Address [address] [place] [id number] Care Team Providers Care Pasta Press Operator Name Role Phone Tiffanie Campos Primary Care Provider [phone] Encounter Details Date Type Department Care Team (Late st Contact Info) Description 10/22/2018 [facility] Committee Historical OTTR [address] [place] [address] Pedro Pablo Milton RN [facility] [id number] [address] [place] [address] Social History Tobacco Use Types Packs/Day Years [...] donor for her , (26, eval) MEDS: [place] [employer] PMH: Gestational hypertension, youngest child 4 months SX: Cholecystectomy, Exc. Cyst Right Wrist FM HX: Hypertension, Thyroid Dz, vocational education teacher, , 3 children BMI: 30 documented in this encounter Plan of Treatment Not on file documented as of this encounter Visit Diagnoses Not on filedocumented in this encounter Care Teams Pasta Press Operator Relationship Specialty Start Date End Date Tiffanie Campos PA [address] [place] [address] [address] [place] [address] PCP - General 10/03/21 documented as of this encounter
--- OUTSIDE RECORDS SUMMARY | 2025-02-12 18:27 | XMS_ITS | Clinical Summary ---
[facility] Organization [facility] Address [address] [place] [address] Care Team Providers Care Pilot Supervisor Name Role Phone Provider, No Known Primary [...] complete this topic Insurance PPO Care Teams Pilot Supervisor Relationship Specialty Start Date End Date Provider, No Known [facility] [place] [address] PCP - General 10/23/17
[2025-02-12 18:28] LABS: Color,Urine YELLOW (Yellow); Glucose,Urine (UA) Negative (Negative); Ketones,Urine 3+ (Negative); Leukocyte Esterase,Urine Negative (Negative); PH,Urine 5.5 (5.0-8.5); Protein,Urine 1+ (Negative); Specific Gravity, Urine 1.025 (1.005-1.030); Urobilinogen,Urine 0.2 EU/dl (0.2)
[2025-02-12] MEDS: KETOROLAC 30MG/ML VIAL 30 MG IV (18:32)
[2025-02-12] MEDS: TAMSULOSIN 0.4MG CAPSULE 0.4 MG PO (18:32)
[2025-02-12] MEDS: 0.9 % SODIUM CHLORIDE 1000ML 1,000 ML 999 ML IV (18:32)
--- NOTE | 2025-02-12 18:39 | ED_ITS ---
Discharge Plan Disposition Patient Disposition: Xfer Short-Term Hosp Condition: Good Prescriptions Prescriptions: No Action Nexplanon 68 mg implant subdermal spironolactone 50 mg tablet 50 mg PO DAILY Qty: 30 8RF Referrals Follow up/Referrals: Tiffanie Campos PA [Primary Care Provider, Medical] - See instructions Activity Restrictions/Add. Instructions Additional Instructions/Restrictions: Stable for transfer. Clinical Impressions Clinical Impression: Kidney stone, Urinary tract obstruction by kidney stone, UTI (urinary tract infection) Stand Alone Forms Stand Alone Forms: Transfer Record - ED Instructions Patient Instructions: DI for Urinary Tract Infection (UTI), DI for Urinary Tract Infection in Children Print Language Print Language: Luxembourgish Discharge ED Provider: Gaviota Jones General Adult HPI General Chief complaint: Urogenital-Female Stated complaint: Lower back pain,possible kidney stone Time Seen by Provider: 02/12/25 18:17 Mode of Arrival: Ambulatory Source of Information: Patient Description of Symptoms (Recalled from ER Triage Doc. by RN): r sided flank pain. was told to come here by pcp due to kidney stone and elevated WBC History of Present Illness HPI narrative: Patient is a 34-year-old otherwise healthy female who presented to the emergency department with suprapubic and right flank pain. Patient states that her pain initially started in her suprapubic region and has now migrated to her right back. Patient states the pain is constant in nature. States that her pain is currently an 8 out of 10. Patient states that she has not had any urinary symptoms but has had decreased urine. Has not had any fevers has had nausea but no vomiting. Patient has not had any chest pain shortness of breath. Patient has not had any other associated symptoms. Patient denies a history of kidney stones. Patient was seen by her primary care provider today and outpatient CT scan was obtained that showed a 7 mm obstructing stone at the right UPJ. Patient was sent here to the emergency department for pain management and further workup of her kidney stone. Related Data Home Medications ?Medication ?Instructions ?Recorded ?Confirmed etonogestrel 68 mg subdermal subdermal 02/26/24 implant (Nexplanon) Previous Rx's ?Medication ?Instructions ?Recorded spironolactone 50 mg tablet 50 mg PO DAILY #30 tabs Allergies Allergy/AdvReac Type Severity Reaction Status Date / Time Penicillins Allergy Hives Verified 03/25/24 15:26 [facility] Disclaimer: The information contained in this section may have been updated after the patient was seen, as this information can be updated by other users. Medical History (Updated 02/12/25 @ 21:45 by Gaviota Jones DO) Elevated glucose level Fibromuscular dysplasia Surgical History History of total splenectomy Social History Smoking Status: Never smoker alcohol intake: never substance use type: denies use current occupational status: other Travel in the last 8 weeks?: None Have you lived/traveled outside [place] in past 30 days?: No Contact w/someone who lives/traveled outside [place] past 30 days?: No Exposure to someone with infectious disease in past 14 days?: No Do you have a fever (greater than 100.4 F or 38 C)?: No Have you tested positive for COVID-19?: No Exposed to someone with COVID-19 in past 14 days?: No Do you have a sore throat?: No Do you have a cough?: No Do you have any weakness?: No Do you have any diarrhea?: No Are you experiencing any unusual bleeding?: No Do you have any muscle aches/pain?: No Do you have any abdominal pain?: No Are you experiencing loss of taste or smell?: No Other Medical History Have you received the Flu Vaccine for this season: Yes Have you received the Pneumonia Vaccine: No ROS Obtained: Yes All systems reviewed & no additional complaints except as documented and Yes Systems reviewed as appropriate & no additional complaints except as documented Physical Exam General General appearance: alert and in no apparent distress Head Head exam: atraumatic, normocephalic and normal inspection Eye Eye exam: Present normal appearance, PERRL and EOMI; Absent scleral icterus ENT ENT exam: Present normal exam and normal external ear exam Neck Neck exam: Present normal inspection and full ROM Chest Chest inspection: Present normal inspection and symmetric chest wall rise Respiratory Respiratory exam: Present normal lung sounds bilaterally; Absent respiratory distress or wheezes Cardiovascular Cardiovascular exam: Present regular rate, normal rhythm and normal heart sounds Abdominal Exam Abdominal exam: Present soft, distention and tenderness (Suprapubic abdominal tenderness, right CVA tenderness); Absent guarding or rebound Extremities Exam Extremities exam: Present normal inspection and full ROM Back Exam Back exam: Present normal inspection and full ROM Neurological Exam Neurological exam: Present alert and oriented X3 Psychiatric Psychiatric exam: Present normal affect and normal mood Skin Skin exam: Present warm and dry Medical Decision Making Medical Records Medical records reviewed: Yes I reviewed the patient's medical records. Screening: Per USPSTF and CDC recommendations, given the prevalence of disease in our region, it is our hospital?s policy to screen for HIV and viral Hepatitis for all patients aged 18 and over and those with ongoing risk factors. Subhash Inquiry Pt receiving controlled substance: No Vital Signs: 02/12/25 18:25 02/12/25 18:34 02/12/25 19:00 Temperature 98.7 F Temperature Source Oral Pulse Rate 90 77 Pulse Rate [Right] 95 H Respiratory Rate 18 Blood Pressure 153/77 H 149/88 H Blood Pressure [Right Arm] 164/98 H Blood Pressure Mean [Right Arm] 120 02 Sat by Pulse Oximetry 100 100 100 Oxygen Delivery Method Room Air 02/12/25 19:30 02/12/25 20:00 02/12/25 20:30 Temperature Temperature Source Pulse Rate 60 83 79 Pulse Rate [Right] Respiratory Rate Blood Pressure 146/82 H 132/82 129/74 Blood Pressure [Right Arm] Blood Pressure Mean [Right Arm] 02 Sat by Pulse Oximetry 100 100 100 Oxygen Delivery Method 02/12/25 21:00 Temperature Temperature Source Pulse Rate 79 Pulse Rate [Right] Respiratory Rate Blood Pressure 128/68 Blood Pressure [Right Arm] Blood Pressure Mean [Right Arm] 02 Sat by Pulse Oximetry 100 Oxygen Delivery Method Lab Data Lab results reviewed: Yes I reviewed the patient's lab results. Lab Results 02/12/25 18:16: Urine Color Yellow, Urine Appearance Clear, Urine pH 5.5, Ur Specific [place] 1.025, Urine Protein 1+ A, Urine Glucose (UA) Negative, Urine Ketones 3+, Urine Blood 3+ A, Urine Nitrate Negative, Urine Bilirubin 2+ A, Urine Urobilinogen 0.2, Ur Leukocyte Esterase Negative, Urine RBC 10-20, Urine WBC 5-10, Ur Squamous Epith Cells 10-20, Urine Bacteria 3+ 02/12/25 18:20: WBC 20.0 H, RBC 3.98 L, Hgb 11.7 L, Hct 35.9 L, MCV 90.2, MCH 29.4, MCHC 32.6, RDW 14.4, Plt Count 632 H, MPV 10.2, Neut % (Auto) 56.5, Lymph % (Auto) 31.3, [place] % (Auto) 9.3, Eos % (Auto) 1.8, Baso % (Auto) 0.9, Neut # (Auto) 11.3 H, Lymph # (Auto) 6.3 H, [place] # (Auto) 1.9 H, Eos # (Auto) 0.4, Baso # (Auto) 0.2, Total Counted 100, Neutrophils % (Manual) 56, Lymphocytes % (Manual) 35, Monocytes % (Manual) 7, Eosinophils % (Manual) 2, Platelet Estimate Moderate increase, RBC Morphology Normal, PT 11.3, INR 1.02, Sodium 139, Potassium 3.9, Chloride 103, Carbon Dioxide 27, Anion Gap 12.9, BUN 13, Creatinine 0.90, Estimated Creat Clear 81, Estimated GFR 71, Est GFR ( Amer) 86, Glucose 86, Calcium 9.7, Total Bilirubin 0.8, AST 35, ALT 46, Alkaline Phosphatase 115, Total Protein 8.7 H, Albumin 4.9, Globulin 3.8 H, Albumin/Globulin Ratio 1.3, Serum HCG, Qual Negative, HCV Ab MIKA w/Rflx PCR Qn Negative, HIV Ag/Ab Combo Qual Negative 02/12/25 18:20 02/12/25 18:20 Orders (Tests/Meds): ED MEDICATIONS Generic Name Dose Route Start Last Admin Trade Name Freq PRN Reason Stop Dose Admin Ceftriaxone Sodium 2 gm/ 100 mls @ 200 mls/hr 02/12/25 19:00 02/12/25 19:20 Sodium Chloride IV 02/22/25 18:59 200 mls/hr Q24H PIETRO Administration Tamsulosin HCl 0.4 mg 02/12/25 21:00 02/12/25 18:32 Tamsulosin 0.4mg Capsule PO 03/14/25 20:59 0.4 mg HS PIETRO Administration Discontinued Medications Generic Name Dose Route Start Last Admin Trade Name Freq PRN Reason Stop Dose Admin Sodium Chloride 1,000 mls @ 999 mls/hr 02/12/25 18:26 02/12/25 18:32 Sod Chlor 0.9% 1000ml Bag IV 02/12/25 19:26 999 mls/hr .Q1H1M ONE Administration Ketorolac Tromethamine 30 mg 02/12/25 18:26 02/12/25 18:32 Ketorolac 30mg/Ml Vial IV 02/12/25 18:27 30 mg ONCE ONE Administration Morphine Sulfate 4 mg 02/12/25 18:55 02/12/25 19:20 Morphine 4mg/Ml Syringe IV 02/12/25 18:56 4 mg ONCE ONE Administration Ondansetron HCl 4 mg 02/12/25 18:55 02/12/25 19:20 Ondansetron 4mg/2ml Vial IV 02/12/25 18:56 4 mg ONCE ONE Administration ORDERS Category Date Time Status CBC w/Auto Diff [Complete Blood Count Auto Diff] Stat Lab 02/12/25 18:20 Completed CMP [Comprehensive Metabolic Panel] Stat Lab 02/12/25 18:20 Completed HCG Qualitative, Serum Stat Lab 02/12/25 18:20 Completed HIV Combo Stat Lab 02/12/25 18:20 Completed Hepatitis C Ab Qual. W/ RFX Stat Lab 02/12/25 18:20 Completed PT INR [Prothrombin Time INR] Stat Lab 02/12/25 18:20 Completed UA [Urinalysis and Microscopic] Stat Lab 02/12/25 18:16 Completed Blood Culture Stat Micro 02/12/25 19:15 Received Urine Culture Stat Micro 02/12/25 18:16 Received Medical Decision Narrative: Patient is an otherwise healthy 34-year-old female who presented to the emergency department with suprapubic and right flank pain. On arrival, patient was hemodynamically stable with unremarkable Eitel signs. Differential includes but not limited to: Nephrolithiasis, obstructing stone, urinary tract infection, pyelonephritis, sepsis, amongst others. Patient was seen by her primary care provider, outpatient CT scan was obtained that showed a 7 mm obstructing right UPJ stone. Labs, urine and pain management were ordered as well as IV fluids here in the emergency department. Patient's labs were reviewed and interpreted by myself: CBC showed a leukocytosis of 20, hemoglobin stable. CMP was unremarkable. UA had 3+ blood, negative nitrites, 10-20 red blood cells, 5-10 white blood cells 3+ bacteria. Patient was given IV Rocephin, IV fluids, Flomax, Toradol and IV finger for pain control. Patient's symptoms were significantly improved at this time. Patient has an infected obstructed kidney stone, patient required transfer to be seen by urology. Patient remained stable in the emergency department, patient was not tachycardic, not hypotensive never febrile. I discussed the case with [facility] who accepted the patient for transfer. Patient was sent by [facility] in stable condition. Critical Care Critical Care Time Critical Care Time: No
[2025-02-12 18:44] LABS: Albumin Level 4.9 g/dl (3.5-5.0); Chloride 103 mmol/L (98-107); Potassium 3.9 mmoL/L (3.5-5.1); Sodium 139 mmol/L (136-145)
[2025-02-12 18:44] LABS: Bilirubin,Urine 2+ (Negative)
[2025-02-12 18:47] LABS: Alanine Aminotransferase 46 U/L (12-78); Albumin/Globulin Ratio 1.3 (1.1-1.8); Alkaline Phosphatase 115 U/L (38-126); Anion Gap 12.9 mEq/L (5-15); Aspartate Amino Transferase 35 U/L (14-36); Bilirubin,Total 0.8 mg/dl (0.2-1.3); Blood Urea Nitrogen 13 mg/dl (7-17); Carbon Dioxide 27 mmol/L (22.0-30.0); Creatinine Clearance Estimated 81 mL/min (50-200); Creatinine,Serum 0.90 mg/dl (0.52-1.04); Estimated Glomerular Filt Rate 71 ml/min (>60); GFR (African American) 86 ML/MIN (>60); Globulin 3.8 g/dL (1.3-3.2); Total Protein,Serum 8.7 g/dl (6.3-8.2)
[2025-02-12 18:48] LABS: Calcium 9.7 mg/dl (8.4-10.2); Glucose 86 mg/dl (74-100); HCG Qualitative, Serum Negative (Negative); Hematocrit 35.9 % (37.0-47.0); Hemoglobin 11.7 g/dL (12.2-16.2); Immature Granulocytes % 0.2 %; Mean Corpuscular HGB Conc 32.6 g/dL (31.8-35.4); Mean Corpuscular Hemoglobin 29.4 pg (27.0-31.2); Mean Corpuscular Volume 90.2 fl (81-99); Nucleated Red Blood Cells % 0 %; Platelet Count 632 K/mm3 (142-424); Red Blood Count 3.98 M/mm3 (4.20-5.40); Red Cell Distribution Width-SD 47.7 fL; White Blood Count 20.0 K/mm3 (4.8-10.8)
[2025-02-12 18:53] LABS: INR 1.02 (0.9-1.1); Prothrombin Time 11.3 seconds (10.1-12.5)
[2025-02-12] MEDS: MORPHINE 4MG/ML SYRINGE 4 MG IV (19:20)
[2025-02-12] MEDS: ONDANSETRON 4MG/2ML VIAL 4 MG IV (19:20)
[2025-02-12 19:29] LABS: RBC Morphology Normal; Total Cells Counted 100
[2025-02-12 19:45] LABS: Hepatitis C Ab Qual. W/ RFX NEGATIVE (Negative)
[2025-02-12 19:46] LABS: Bacteria,Urine 3+ /lpf
--- NOTE | 2025-02-12 20:38 | PC.NURSE ---
Called [facility] regarding a transfer. stated they were on a wait list. put the pt on the wait list
--- NOTE | 2025-02-12 21:09 | PC.NURSE ---
[facility] was called for possible transfer, called back and the pt was declined
== END 2025-02-12 22:05 | disposition short-term general hospital (02) ==
PROVIDERS: Emergency Medicine; Emergency Provider Student in an Organized Health Care Education/Training Program; PCP Physician Assistant
DX: R10.31 Right lower quadrant pain (principal); N20.1 Calculus of ureter; N39.0 Urinary tract infection, site not specified; M54.59 Other low back pain; R11.0 Nausea
CPT/HCPCS: 80053; 81001; 84703; 85007; 85025; 85027; 85610; 86803; 87040; 87086; 87389; 96361; 96365; 96366; 96375; 99285; J0696; J1885; J2270; J2405; J7030